=== PATIENT | female | born 1985 | race Caucasian/White ===

== ENCOUNTER 2023-12-12 14:42 | Outpatient (AMB) | payer OTHER, SELFPAY ==
[2023-12-12 15:06] VITALS: BP 161/90; PULSE 70; O2SAT 97; BMI 38.9
--- NOTE | 2023-12-12 15:06 | A.OFFPC_ITS ---
Vital Signs 12/12/23 15:06 Height 5 ft 5 in Weight 234 lb BMI 38.9 BP 161/90 H Pulse 70 Pulse Source Pulse Oximeter Pulse Oximetry (%) 97 Oxygen Delivery Method Room Air Intake Visit Reasons: New patient-req physical Intake Note: Patient is here as a new patient, would like to talk about cough, congestion, for 2 days. [employer] Contemporary [employer] Curator Required: Yes [employer] Contemporary [employer] Curator Name: [id number] Clark. Allergies No Known Allergies Allergy (Verified 12/12/23 15:10) Tobacco use date assessed: 12/12/23 Dental Screening Dental Screen Date: 12/12/23 Did you have a dental visit in the last 12 months?: No Did you have a dental problem in the last 6 months where you did not have access to dental care?: No Was dental information given to patient?: Patient declined HPI New patient-req physical HPI Details New patient Prior PCP:? PCP in [place] Last office visit/CPE: 8 yrs ago Acute issue(s): Cough High BP PMHx: High BP readings, High BS readings, Anemia. SurgHx: FHx: Mom: HTN, HLD. Dad: HTN, Bladder CA SocHx: Nonsmoker, EtOH Socially. No drugs. PFS Medical History (Updated 12/12/23 @ 15:46 by Cas Hughes) Acid reflux Hemoglobin low delivery delivered Family History (Updated 12/12/23 @ 15:33 by Jaylin Horton [facility]) Mother High blood pressure High cholesterol Father High blood pressure High cholesterol Cardiovascular disease Cancer Maternal Grandmother High blood pressure Paternal Grandfather High blood pressure Social History (Updated 12/12/23 @ 15:23 by Jaylin Horton [facility]) Household Members: Family Housing: House Are you a primary career and technology education teacher to a significant other at home: No Do you presently have visiting nurse or other home services: No 75 years or older and lives alone: No Alcohol intake: current Alcohol intake frequency: holidays/special occasions only Alcohol type: wine Patient Tobacco Use Status: Never used Tobacco e-Cigarette/Vaping Use: Never Used Special frances needs: Yes service: No Current occupational status: employed Current occupation: Works at [employer] Cognitive needs: No Hearing needs: No Vision needs: No Questionnaire PHQ-9 Over the last 2 weeks, how often have you been bothered by any of the following problems? 1. Little interest or pleasure in doing things: not at all 2. Feeling down, depressed, or hopeless: not at all 3. Trouble falling or staying asleep, or sleeping too much: not at all 4. Feeling tired or having little energy: more than half the days 5. Poor appetite or overeating: several days 6. Feeling bad about yourself - or that you are a failure or have let yourself or your family down: not at all 7. Trouble concentrating on things, such as reading the newspaper or watching television: not at all 8. Moving or speaking so slowly that other people could have noticed. Or the opposite - being so fidgety or restless that you have been moving around a lot more than usual: not at all 9. Thoughts that you would be better off or of hurting yourself in some way: not at all Total score: 3 Source: Developed by Drs. Nikhil uKmar, Nichole Azul, Talha Lindquist and colleagues, with an educational trice from [employer]. Thrive Questionnaire Date Thrive assessed: 12/12/23 I am a: Patient What is your living situation today?: I have a steady place to live Within the past 12 months, did the food you bought not last and you didn't have the money to get more?: Never true Do you have trouble paying for medicines?: No Do you have trouble getting transportation to medical appointments?: No Do you have trouble paying your heating and electricity bill?: No Do you have trouble taking care of your child, family member or friend?: No Do you have trouble with day-to-day activities such as bathing, preparing meals, shopping, managing finances, etc.?: No Are you currently unemployed and looking for a job?: No Are you interested in more education?: No THRIVE Score: 0 LAYLA-7 AMB Questionnaire LAYLA-7 Date LAYLA - 7 assessed: 12/12/23 Feeling nervous, anxious, or on edge: 0 = Not at all Not being able to stop or control worryin = Not at all Worrying too much about different things: 1 = Several days Trouble relaxin = Not at all Being so restless that it is hard to sit still: 0 = Not at all Becoming easily annoyed or irritable: 1 = Several days Feeling afraid as if something awful might happen: 0 = Not at all Total LAYLA-7 score (0-4 normal; 5-9 mild; 10-14 moderate; 15-21 severe): 2 Source: Developed by Drs. Nikhil Kumar, Nichole Azul, Talha Lindquist and colleagues, with an educational trice from [employer]. Review of Systems Const Denies chills, Denies fatigue, Denies fever(s), Denies headache(s) and Denies weakness ENT Denies dizziness and Denies headache(s) Card Denies chest pain, Denies lightheadedness, Denies dyspnea and Denies other (Palpitations) Resp Denies cough, Denies dyspnea, Denies wheezing and Denies other ( shortness of breath) Musc Denies numbness and Denies tingling Neuro Denies dizziness, Denies headache(s), Denies numbness, Denies tingling, Denies paresthesias and Denies weakness Psych Denies anxiety and Denies depression Endo Denies fatigue Aller/Immun Denies wheezing Physical exam (Primary Care) BMI result Body Mass Index 38.9 Tobacco/Smoking Status: Tobacco use Status Tobacco use date assessed 12/12/23 12/12/23 15:23 Patient Tobacco Use Status Never used Tobacco 12/12/23 15:23 e-Cigarette/Vaping Use Never Used 12/12/23 15:23 Const General: no acute distress and well developed Nutritional Appearance: well nourished Orientation/consciousness: patient [facility]: Yes normocephalic and Yes atraumatic Eyes General: appearance normal, both eyes and all related structures Pupils: Equal, round and reactive pupils present EOM: EOMs intact bilaterally Resp Effort & Inspection: normal respiratory effort Auscultation: clear to auscultation bilaterally Cardio Rate: regular rate Rhythm: regular rhythm Heart sounds: S1 normal heart sound present, S2 normal heart sound present, no gallops, no murmurs and no rubs Neuro General: patient oriented x3 and gait normal Cranial nerves: Yes Equal, round and reactive pupils present Psych Affect: normal affect Assessment and Plan Assessment & Plan (1) Hypertension: Code(s): I10 - Essential (primary) hypertension Plan: Start?lisinopril. Goal?is?less?than?140/90 (2) High blood sugar: Code(s): R73.9 - Hyperglycemia, unspecified Plan: Patient?has?had?blood?sugar?reading?over?400 She?has?not?been?told?that?she?has?diabetes. She?has?been?taking?metformin. Unable?to?obtain?A1c?due?to?low?hemoglobin. Will?check?fructosamine Continue?metformin (3) Low hemoglobin: Code(s): D64.9 - Anemia, unspecified Plan: Check?H&H (4) Laboratory exam ordered as part of routine general medical examination: Code(s): Z00.00 - Encounter for general adult medical examination without abnormal findings Plan: Check labs Orders: Orders Comprehensive [place]. Panel Fast Today Z00.00 - Encounter for general adult medical examination without abnormal findings Complete Blood Count Auto Diff Today Z00.00 - Encounter for general adult medical examination without abnormal findings Lipid Panel Today Z00.00 - Encounter for general adult medical examination without abnormal findings UA and rflx microscopic Today Z00.00 - Encounter for general adult medical examination without abnormal findings Fructosamine Today D64.9 - Anemia, unspecified, R73.9 - Hyperglycemia, unspecified Microalbumin, Random (w Creat) Today I10 - Essential (primary) hypertension TSH reflex Free T4 Today Z00.00 - Encounter for general adult medical examination without abnormal findings Hemoglobin A1c Today R73.01 - Impaired fasting glucose Medications: New metformin 500 mg PO DAILY 30 days 30 tabs 2RF lisinopril 20 mg PO DAILY 30 days 30 tabs 2RF Coding Level of Care Code New Pt Level 3 (70147) Diagnoses Hypertension I10 High blood sugar R73.9 Low hemoglobin D64.9 Laboratory exam ordered as part of routine general medical examination Z00.00
== END 2023-12-12 16:00 | disposition home or self-care (01) ==
PROVIDERS: PCP Family Medicine; Visit Provider Family Medicine
DX: I10 Essential (primary) hypertension (principal); R73.9 Hyperglycemia, unspecified; D64.9 Anemia, unspecified; Z00.00 Encounter for general adult medical examination without abnormal findings
CPT/HCPCS: 99203

== ENCOUNTER 2024-01-19 06:08 | Outpatient (REF) | payer OTHER, SELFPAY ==
[2024-01-19 11:34] LABS: MANUAL DIFF FLAG NO
[2024-01-19 11:41] LABS: Basophils Absolute Auto 0.1 X10*3/uL (0.0-0.2); Basophils Percent Auto 0.9 % (0-2); Eosinophils Absolute Auto 0.2 X10*3/uL (0.0-0.4); Hematocrit 37.3 % (37.0-47.0); Hemoglobin 11.7 g/dl (12.0-16.0); Imm Gran Abs Auto 0.01 X10*3/uL (0.00-0.03); Imm Gran Pct Auto 0.2 % (0.0-0.4); Lymphocytes Percent Auto 35.8 % (20-40); Mean Corpuscular HGB Conc 31.4 g/dl (31.0-35.0); Mean Corpuscular Hemoglobin 24.6 pg (27.0-33.0); Mean Corpuscular Volume 78.5 fL (80.0-98.0); Mean Platelet Volume 11.3 fL (9.4-12.3); Monocytes Absolute Auto 0.4 X10*3/uL (0.1-1.2); Monocytes Percent Auto 7.2 % (2-11); Neutrophils Percent Auto 52.9 % (45-73); Platelet Count 287 X10*3/uL (160-400); Red Blood Count 4.75 X10*6/uL (4.20-5.50); Red Cell Distribution Width 15.1 % (11.0-16.0); White Blood Count 5.7 X10*3/uL (4.8-10.8)
[2024-01-19 11:52] LABS: Estimated Average Glucose 103 mg/dL; Hemoglobin A1c % 5.2 % (<6.0)
[2024-01-19 12:12] LABS: Alanine Aminotransferase 36 U/L (0-31); Albumin Level 4.1 g/dL (3.5-5.0); Alkaline Phosphatase 82 U/L (39-117); Anion Gap 7 (12-20); Aspartate Amino Transferase 27 U/L (5-31); Bilirubin Total 0.3 mg/dL (0.0-1.0); Blood Urea Nitrogen 24 mg/dL (9-16); Calcium 9.3 mg/dL (8.4-10.2); Carbon Dioxide 27 mmol/L (22-29); Chloride 108 mmol/L (96-108); Cholesterol 173 mg/dL (<200); Estimated Glomerular Filt Rate > 60; Glucose Fasting 91 mg/dL (60-99); HDL Cholesterol 43 mg/dL (>40); LDL Cholesterol Calculated 116 mg/dL (<100); Potassium 4.3 mmol/L (3.3-5.1); Sodium 138 mmol/L (135-145); Total Protein 7.4 g/dL (6.5-8.0); Triglycerides 71 mg/dL (<150)
[2024-01-19 12:33] LABS: TSH reflex Free T4 1.59 uIU/mL (0.32-4.0)
[2024-01-24 22:38] LABS: Fructosamine 203 umol/L (205-285)
== END 2024-01-19 06:09 | disposition home or self-care (01) ==
LOC: HO.HMGCLDS 06:08
PROVIDERS: PCP Family Medicine; Visit Provider Family Medicine
DX: Z00.00 Encounter for general adult medical examination without abnormal findings (principal); R73.9 Hyperglycemia, unspecified; D64.9 Anemia, unspecified
CPT/HCPCS: 36415; 80053; 80061; 82985; 83036; 84443; 85025

== ENCOUNTER 2024-01-24 15:53 | Outpatient (AMB) | payer OTHER, SELFPAY ==
--- NOTE | 2024-01-24 15:59 | MHC.PC.OV ---
Vital Signs 01/24/24 16:00 Height 5 ft 5 in Weight 238 lb BMI 39.6 BP 129/61 Blood Pressure Location Rt brachial Pulse 61 Pulse Source Pulse Oximeter Pulse Oximetry (%) 97 Oxygen Delivery Method Room Air Intake Visit Reasons: f/u labs, hemoglobin, hypertension Intake Note: Patient is here for lab follow up. Allergies No Known Allergies Allergy (Verified 01/24/24 16:02) Tobacco use date assessed: 01/24/24 HPI f/u labs, hemoglobin, hypertension HPI Details 38 y/o female presents to f/u labs, hypertension. Labs were drawn 01/19/24. Reviewed labs with pt. Hgb mildly low at 11.7. Elevated ALT of 36. Triglycerides 71. TC 173. LDL 116. HDL 43. A1c 5.2%. Blood pressure today is 129/61. She is on lisinopril 20mg daily. [facility] Medical History (Updated 01/24/24 @ 16:48 by Cas Hughes) Acid reflux Hemoglobin low delivery delivered Family History (Updated 12/12/23 @ 15:37 by Jaylin Horton [facility]) Mother High blood pressure High cholesterol Father High blood pressure High cholesterol Cardiovascular disease Cancer Maternal Grandmother High blood pressure Paternal Grandfather High blood pressure Social History (Updated 12/12/23 @ 15:23 by Jaylin Horton [facility]) Household Members: Family Housing: House Are you a primary complex care nurse practitioner to a significant other at home: No Do you presently have visiting nurse or other home services: No 75 years or older and lives alone: No Alcohol intake: current Alcohol intake frequency: holidays/special occasions only Alcohol type: wine Patient Tobacco Use Status: Never used Tobacco e-Cigarette/Vaping Use: Never Used Special frances needs: Yes service: No Current occupational status: employed Current occupation: Works at [employer] Cognitive needs: No Hearing needs: No Vision needs: No Questionnaire Thrive Questionnaire Date Thrive assessed: 12/12/23 LAYLA-7 AMB Questionnaire LAYLA-7 Date LAYLA - 7 assessed: 12/12/23 Source: Developed by Drs. Nikhil Kumar, Nichole Azul, Talha Lindquist and colleagues, with an educational trice from [employer]. Review of Systems Const Denies chills, Denies fatigue, Denies fever(s), Denies headache(s) and Denies weakness ENT Denies dizziness and Denies headache(s) Card Denies dyspnea Resp Denies cough, Denies dyspnea, Denies wheezing and Denies other (shortness of breath) Musc Denies numbness and Denies tingling Neuro Denies dizziness, Denies headache(s), Denies numbness, Denies tingling and Denies weakness Psych Denies anxiety and Denies depression Endo Denies fatigue Aller/Immun Denies wheezing Physical exam (Primary Care) Vital Signs: Last Vital Signs Pulse 61 01/24/24 16:00 BP 129/61 01/24/24 16:00 Pulse Ox 97 01/24/24 16:00 Oxygen Delivery Method Room Air 01/24/24 16:00 BMI result Body Mass Index 39.6 Tobacco/Smoking Status: Tobacco use Status Tobacco use date assessed 01/24/24 01/24/24 16:03 Patient Tobacco Use Status Never used Tobacco 01/24/24 16:03 e-Cigarette/Vaping Use Never Used 01/24/24 16:03 Thrive Assessment: Date of Thrive Assessment Date Thrive assessed 12/12/23 01/24/24 16:03 Const General: well developed; No acute distress Nutritional Appearance: well nourished Orientation/consciousness: patient oriented x3 HENMT Head: Yes normocephalic and Yes atraumatic Eyes General: appearance normal, both eyes and all related structures Pupils: Equal, round and reactive pupils present EOM: EOMs intact bilaterally Resp Effort & Inspection: normal respiratory effort Skin Other: 1/2 cm wart on the pad of L index finger Neuro General: patient oriented x3 and gait normal Cranial nerves: Yes Equal, round and reactive pupils present Psych Affect: normal affect Assessment and Plan Assessment & Plan (1) Hypertension: Code(s): I10 - Essential (primary) hypertension Plan: BP now controlled on Lisinopril Goal < 140/90 Cont current med regimen (2) High blood sugar: Code(s): R73.9 - Hyperglycemia, unspecified Plan: Pt on Metformin. A1c 5.2%. No definitive diagnosis of DM Cont metformin as prescribed (3) Borderline anemia: Code(s): D64.9 - Anemia, unspecified Plan: Mildly decreased Hemoglobin. HCT in normal range. Also mild microcytosis. May benefit from Iron Will continue to monitor (4) Elevated ALT measurement: Code(s): R74.01 - Elevation of levels of liver transaminase levels Plan: Likely?nonalcoholic?hepatic?steatosis?but?also?encouraged?she?avoid?Tylenol?and?alcohol. Hydrate?well We?will?repeat?her?liver?enzymes?prior?to?her?next?visit?in?3?months If?liver?enzymes?are?the?same?or?higher,?would?check?an?ultrasound (5) Wart: Code(s): B07.9 - Viral wart, unspecified Plan: Wart?on?the?pad?of?her?left?index?finger. Recommended?she?try?a?salicylic?acid?pad?or?drops. If?not?improving,?will?refer?to?dermatology?due?to?the?location. Orders: Orders Vitamin B12 and Folate Today E53.8 - Deficiency of other specified B group vitamins IRON PROFILE Today D64.9 - Anemia, unspecified Comprehensive [place]. Panel Fast Today R74.01 - Elevation of levels of liver transaminase levels, Z00.00 - Encounter for general adult medical examination without abnormal findings Lipid Panel Today Z00.00 - Encounter for general adult medical examination without abnormal findings Complete Blood Count Auto Diff Today D64.9 - Anemia, unspecified, Z00.00 - Encounter for general adult medical examination without abnormal findings Coding Level of Care Code Est Pt Level 4 (30091) Diagnoses Hypertension I10 High blood sugar R73.9 Borderline anemia D64.9 Elevated ALT measurement R74.01 Wart B07.9
[2024-01-24 16:00] VITALS: BP 129/61; PULSE 61; O2SAT 97; BMI 39.6
== END 2024-01-24 17:54 | disposition home or self-care (01) ==
PROVIDERS: PCP Family Medicine; Visit Provider Family Medicine
DX: I10 Essential (primary) hypertension (principal); R73.9 Hyperglycemia, unspecified; D64.9 Anemia, unspecified; R74.01 Elevation of levels of liver transaminase levels; B07.9 Viral wart, unspecified
CPT/HCPCS: 99214

== ENCOUNTER 2024-09-06 13:01 | Outpatient (AMB) | payer OTHER, SELFPAY ==
--- NOTE | 2024-09-06 13:33 | A.OFFPC_ITS ---
Vital Signs 09/06/24 13:34 Height 5 ft 5 in Weight 236 lb 4 oz BMI 39.3 BP 136/64 Blood Pressure Location Rt brachial Position Sitting Respiration 16 Pulse 76 Pulse Source Pulse Oximeter Temp 98.2 F Temp Source Temporal Artery Scan Pulse Oximetry (%) 98 Oxygen Delivery Method Room Air Intake Visit Reasons: Shoulder Pain Intake Note: left shoulder pain 4 days Allergies No Known Allergies Allergy (Verified 09/06/24 13:34) Medication List - Last Reconciled 09/06/24 by Brooks Wolf MD losartan 50 mg PO DAILY 90 days metformin 500 mg PO DAILY 30 days naproxen 500 mg PO BID 30 days Tobacco use date assessed: 01/24/24 Dental Screening Dental Screen Date: 12/12/23 HPI Shoulder Pain HPI Details 38 y/o female presents today with compla ints of L shoulder pain. Reports pain x4 days. Her job has her sometimes lifting heavy things. A1c 01/19/24 was 5.2%. A1c today 09/06/24 5.7%. She is on metformin 500mg daily. No definitive diagnosis of DM. Blood pressure today 136/64, 76p. She is on losartan 50mg daily. [facility] Medical History (Updated 09/06/24 @ 14:16 by Brooks Wolf MD) Acid reflux Hemoglobin low delivery delivered Family History (Updated 12/12/23 @ 15:37 by Jaylin Horton CMA) Mother High blood pressure High cholesterol Father High blood pressure High cholesterol Cardiovascular disease Cancer Maternal Grandmother High blood pressure Paternal Grandfather High blood pressure Social History (Updated 12/12/23 @ 15:23 by Jaylin Horton CMA) Household Members: Family Housing: House Are you a primary skin care instructor to a significant other at home: No Do you presently have visiting nurse or other home services: No 75 years or older and lives alone: No Alcohol intake: current Alcohol intake frequency: holidays/special occasions only Alcohol type: wine Patient Tobacco Use Status: Never used Tobacco e-Cigarette/Vaping Use: Never Used Special frances needs: Yes service: No Current occupational status: employed Current occupation: Works at [email or web address] Cognitive needs: No Hearing needs: No Vision needs: No Questionnaire PHQ-9 Over the last 2 weeks, how often have you been bothered by any of the following problems? 1. Little interest or pleasure in doing things: not at all 2. Feeling down, depressed, or hopeless: not at all 3. Trouble falling or staying asleep, or sleeping too much: not at all 4. Feeling tired or having little energy: not at all 5. Poor appetite or overeating: not at all 6. Feeling bad about yourself - or that you are a failure or have let yourself or your family down: not at all 7. Trouble concentrating on things, such as reading the newspaper or watching television: not at all 8. Moving or speaking so slowly that other people could have noticed. Or the opposite - being so fidgety or restless that you have been moving around a lot more than usual: not at all 9. Thoughts that you would be better off or of hurting yourself in some way: not at all Total score: 0 Source: Developed by Drs. Nikhil Kumar, Nichole Azul, Talha Lindquist and colleagues, with an educational trice from [employer]. Thrive Questionnaire Date Thrive assessed: 12/12/23 I am a: Patient What is your living situation today?: I have a steady place to live Within the past 12 months, did the food you bought not last and you didn't have the money to get more?: Often true Within the past 12 months, did you worry whether your food would run out before you got money to buy more?: Often true Do you have trouble paying for medicines?: I choose not to answer this question Do you have trouble getting transportation to medical appointments?: No Do you have trouble paying your heating and electricity bill?: I choose not to answer this question Do you have trouble taking care of your child, family member or friend?: I choose not to answer this question Do you have trouble with day-to-day activities such as bathing, preparing meals, shopping, managing finances, etc.?: No Are you currently unemployed and looking for a job?: No Are you interested in more education?: I choose not to answer this question Please select the resources that you would like help with: None Currently or been in a relationship where the following occur: I choose not to answer THRIVE Score: 2 AUDIT C Alcohol Use Questionnaire (AUDIT-C) 1. How often do you have a drink containing alcohol?: Never Total Score: 0 LAYLA-7 AMB Questionnaire LAYLA-7 Date LAYLA - 7 assessed: 12/12/23 Feeling nervous, anxious, or on edge: 0 = Not at all Not being able to stop or control worryin = Not at all Worrying too much about different things: 0 = Not at all Trouble relaxin = Not at all Being so restless that it is hard to sit still: 0 = Not at all Becoming easily annoyed or irritable: 0 = Not at all Feeling afraid as if something awful might happen: 0 = Not at all Total LAYLA-7 score (0-4 normal; 5-9 mild; 10-14 moderate; 15-21 severe): 0 Source: Developed by Drs. Nikhil Kumar, Nichole Azul, Talha Lindquist and colleagues, with an educational trice from [employer]. Review of Systems Const Denies chills, Denies fatigue, Denies fever(s), Denies headache(s) and Denies weakness ENT Denies dizziness and Denies headache(s) Card Denies dyspnea Resp Denies cough, Denies dyspnea, Denies wheezing and Denies other (shortness of breath) Musc Details: L shoulder pain Denies numbness and Denies tingling Neuro Denies dizziness, Denies headache(s), Denies numbness, Denies tingling and Denies weakness Psych Denies anxiety and Denies depression Endo Denies fatigue Aller/Immun Denies wheezing Physical exam (Primary Care) Vital Signs: Last Vital Signs Temp 98.2 F 09/06/24 13:34 Pulse 76 09/06/24 13:34 Resp 16 09/06/24 13:34 BP 136/64 09/06/24 13:34 Pulse Ox 98 09/06/24 13:34 Oxygen Delivery Method Room Air 09/06/24 13:34 BMI result Body Mass Index 39.3 Tobacco/Smoking Status: Tobacco use Status Tobacco use date assessed 01/24/24 09/06/24 13:38 Patient Tobacco Use Status Never used Tobacco 09/06/24 13:38 e-Cigarette/Vaping Use Never Used 09/06/24 13:38 PHQ-9: PHQ-9 Score PHQ-9: Total score 0 09/06/24 21:38 Thrive Assessment: Date of Thrive Assessment Date Thrive assessed 12/12/23 09/06/24 13:38 Currently or been in a relationship where the following occur: I choose not to answer Const General: well developed; No acute distress Nutritional Appearance: well nourished Orientation/consciousness: patient oriented x3 HENMT Head: Yes normocephalic and Yes atraumatic Eyes General: appearance normal, both eyes and all related structures Pupils: Equal, round and reactive pupils present EOM: EOMs intact bilaterally Resp Effort & Inspection: normal respiratory effort Neuro General: patient oriented x3 and gait normal Cranial nerves: Yes Equal, round and reactive pupils present Psych Affect: normal affect Results AMB Hemoglobin A1c AMB Hemoglobin A1c 5.7 % Last Edit by JEFERSON Lunsford on 09/06/24 16:13 Results Reviewed Results Reviewed: Laboratory Last Values Hgb A1c (Clinic) 5.7 % (4.0-6.0) 09/06/24 16:12 Coding Level of Care Code Est Pt Level 4 (11699) Diagnoses Left shoulder pain M25.512 Hypertension I10 High blood sugar R73.9 Assessment & Plan Assessment & Plan (1) Left shoulder pain: Code(s): M25.512 - Pain in left shoulder Category: Medical Plan: Bilateral?trapezius?muscle?strain,?left?worse?than?right Encouraged?ice/heat,?NSAIDs?and?physical?therapy She?can?let?me?know?if?this?worsens?or?is?not?improving (2) Hypertension: Code(s): I10 - Essential (primary) hypertension Plan: Blood?pressure?is?controlled.??Goal?is?less?than?140/90 Continue?current?medication (3) High blood sugar: Code(s): R73.9 - Hyperglycemia, unspecified Plan: A1c?shows?good?control.??Goal?is?less?than?7.0% Continue?current?medication Continue?working?at?a?diet?low?in?sugars?and?starches Encouraged?exercise?and?weight?loss Orders: Orders PT Evaluation and Treatment Today M25.512 - Pain in left shoulder, S46.819A - Strain of other muscles, fascia and tendons at shoulder and upper arm level, unspecified arm, initial encounter AMB Hemoglobin A1c Today R73.9 - Hyperglycemia, unspecified Medications: New naproxen 500 mg PO BID 30 days 60 tabs 1RF Refilled losartan 50 mg PO DAILY 90 days 90 tabs 3RF metformin 500 mg PO DAILY 30 days 30 tabs 2RF
[2024-09-06 13:34] VITALS: BP 136/64; PULSE 76; RESP 16; TEMP 36.8; O2SAT 98; BMI 39.3
== END 2024-09-06 14:15 | disposition home or self-care (01) ==
PROVIDERS: PCP Family Medicine; Visit Provider Family Medicine
DX: M25.512 Pain in left shoulder (principal); I10 Essential (primary) hypertension; R73.9 Hyperglycemia, unspecified

== ENCOUNTER → 2024-09-06 13:01 | Outpatient (BNVA) | payer OTHER, SELFPAY | PROVIDERS: PCP Family Medicine; Visit Provider Family Medicine | DX: M25.512 Pain in left shoulder (principal); R73.9 Hyperglycemia, unspecified; I10 Essential (primary) hypertension | CPT/HCPCS: 83036; 96127; 99212 ==

== ENCOUNTER 2024-11-19 13:01 | Outpatient (RCR) | payer OTHER, SELFPAY ==
--- NOTE | 2024-10-22 16:28 | MHC.PT.EP ---
[facility] [place] Office [place] Office [place] Office [address] Carmen Marcus [address] [phone] F: [phone] F: [phone] F: [phone] F: [phone] Physical Therapy Plan of Care Date of Evaluation: 10/22/24 Date of Surgery: Diagnosis: L shoulder pain *Trapezius muscle strain (MD Dx) L shoulder subacromial impingement syndrome (PT Dx) Assessment: Katya is a 39 yo Polish speaking female who was referred by Dr. Brooks Wolf MD for Dx of Left shoulder pain and trapezius muscle strain. PT diagnosis is LEFT UT strain, subacromial impingement syndrome. Impairments include forward shoulder posture, painful shoulder ROM, decreased and painful shoulder strength, and poor lifting mechanics resulting in their inability to lift, reach, and turn head. 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 Pt will benefit from skilled PT to address impairments and meet their goals. Frequency and Duration: The patient will be seen 1x/4weeks Short Term Goals: 2 weeks Patient will be able to perform HEP to independently manage condition. Patient will demonstrate proper lifting mechanics to lift 5 lbs without pain. 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 Patient will increase shoulder abduction strength to 5/5 without pain to be able to lift 15 lb at work. Treatment Plan: Modalities to reduce pain, spasms and effusion. Manual therapy to restore motion and function. Therapeutic exercise to improve strength and flexibility. Neuromuscular re-education for posture and balance. Therapeutic activities to return to functional activities of daily living. Electronically signed by: Xiomara Woodall, PT, DPT Please sign and return to therapist. Thank you for your referral.
--- NOTE | 2024-11-19 15:17 | MHC.PT.DC ---
[facility] [place] Office [place] [facility] [place] [facility] [address] Carmen Marcus [address] [phone] F: [phone] F: [phone] F: [phone] F: [phone] Physical Therapy Discharge Report Diagnosis: L shoulder pain *Trapezius muscle strain (MD Dx) L shoulder subacromial impingement syndrome (PT Dx) Date of Surgery: Date of Evaluation: 10/22/24 Date of Discharge: 11/19/24 Treatments to Date: 5 Cancellations to Date: No Shows to Date: Discharge Status: Improved Function Independent with HEP Discharge Summary: Katya presents with full AROM and near full strength. 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 She is re-educated today on the importance of neutral posture with reduction of shoulder and neck pain. She is appropriate for discharge. Electronically signed by: Xiomara Woodall, PT, DPT Please sign and return to therapist. Thank you for your referral.
== END 2024-11-19 15:18 | disposition home or self-care (01) ==
LOC: HO.PT 13:01
PROVIDERS: PCP Family Medicine; Visit Provider Family Medicine
DX: M25.512 Pain in left shoulder (principal); S46.812A Strain of other muscles, fascia and tendons at shoulder and upper arm level, left arm, initial encounter
CPT/HCPCS: 97110; 97140; 97161; 97535

== ENCOUNTER 2024-11-26 11:14 | Outpatient (AMB) | payer OTHER, SELFPAY ==
--- NOTE | 2024-11-26 11:21 | A.OFFPC_ITS ---
Vital Signs 11/26/24 11:54 Height 5 ft 5 in Weight 230 lb 2 oz BMI 38.3 BP 137/76 Blood Pressure Location Rt brachial Position Sitting Respiration 16 Pulse 64 Pulse Source Pulse Oximeter Temp 98.7 F Temp Source Oral Pulse Oximetry (%) 98 Oxygen Delivery Method Room Air Intake Visit Reasons: f/u hypertension, blood sugars Intake Note: patient here to follow up on HTN and Blood sugars Natural Resources Faculty Member Required: Yes Natural Resources Faculty Member Language: Off Track Betting Manager Name: [id number] Is last menstrual period known: Yes Last menstrual period: 11/19/24 Post menopausal: No Patient : No Allergies No Known Allergies Allergy (Verified 11/26/24 11:53) Medication List - Last Reconciled 11/26/24 by Brooks Wolf MD losartan 50 mg PO DAILY 90 days metformin 500 mg PO DAILY naproxen 500 mg PO BID 30 days Tobacco use date assessed: 11/26/24 Dental Screening Dental Screen Date: 11/26/24 Did you have a dental visit in the last 12 months?: No Did you have a dental problem in the last 6 months where you did not have access to dental care?: No Was dental information given to patient?: Patient has dentist HPI f/u hypertension, blood sugars HPI Details 39 y/o female presents to f/u blood suga rs, htn. Last A1c 09/06/24 5.7%. She is on metformin 500mg daily. No definitive diagnosis of DM. Blood pressure today 137/76, 64p. She is on losartan 50mg daily. HPI Comments History of Present Illness Details Documentation assistance for Brooks Wolf MD, was provided by Cas Hughes, Electronics Installer on 11/26/2024 at 12:21 PM EST. I, Dr. Wolf, have read, observed, and verified documentation. [facility] Medical History (Updated 11/26/24 @ 12:27 by Brooks Wolf MD) Acid reflux Hemoglobin low delivery delivered Family History (Updated 12/12/23 @ 15:37 by Jaylin Horton CMA) Mother High blood pressure High cholesterol Father High blood pressure High cholesterol Cardiovascular disease Cancer Maternal Grandmother High blood pressure Paternal Grandfather High blood pressure Social History (Updated 12/12/23 @ 15:23 by Jaylin Horton CMA) Household Members: Family Housing: House Are you a primary overnight caregiver to a significant other at home: No Do you presently have visiting nurse or other home services: No 75 years or older and lives alone: No Alcohol intake: current Alcohol intake frequency: holidays/special occasions only Alcohol type: wine Patient Tobacco Use Status: Never used Tobacco e-Cigarette/Vaping Use: Never Used Special frances needs: Yes service: No Current occupational status: employed Current occupation: Works at [employer] Cognitive needs: No Hearing needs: No Vision needs: No Female Reproductive History Menstrual Date of last menstrual period: 11/19/24 Questionnaire PHQ-9 Over the last 2 weeks, how often have you been bothered by any of the following problems? 1. Little interest or pleasure in doing things: not at all 2. Feeling down, depressed, or hopeless: not at all 3. Trouble falling or staying asleep, or sleeping too much: not at all 4. Feeling tired or having little energy: not at all 5. Poor appetite or overeating: not at all 6. Feeling bad about yourself - or that you are a failure or have let yourself or your family down: not at all 7. Trouble concentrating on things, such as reading the newspaper or watching television: not at all 8. Moving or speaking so slowly that other people could have noticed. Or the opposite - being so fidgety or restless that you have been moving around a lot more than usual: not at all 9. Thoughts that you would be better off or of hurting yourself in some way: not at all Total score: 0 Depression Screening Interpretation: Negative Depression Screening Done: Yes 61042 - PHQ-9 Billing: Yes Source: Developed by Drs. Nikhil Kuamr, Nichole Azul, Talha Lindquist and colleagues, with an educational trice from [employer]. Thrive Questionnaire Date Thrive assessed: 11/26/24 I am a: Patient What is your living situation today?: I have a steady place to live Within the past 12 months, did the food you bought not last and you didn't have the money to get more?: I choose not to answer this question Within the past 12 months, did you worry whether your food would run out before you got money to buy more?: I choose not to answer this question Do you have trouble paying for medicines?: I choose not to answer this question Do you have trouble getting transportation to medical appointments?: Yes Do you have trouble paying your heating and electricity bill?: I choose not to answer this question Do you have trouble taking care of your child, family member or friend?: No Do you have trouble with day-to-day activities such as bathing, preparing meals, shopping, managing finances, etc.?: No Are you currently unemployed and looking for a job?: No Are you interested in more education?: No Please select the resources that you would like help with: None Currently or been in a relationship where the following occur: No concerns reported THRIVE Score: 1 AUDIT C Alcohol Use Questionnaire (AUDIT-C) 1. How often do you have a drink containing alcohol?: Never 3. How often do you have six or more drinks on one occasion?: Never Total Score: 0 LAYLA-7 AMB Questionnaire LAYLA-7 Date LAYLA - 7 assessed: 11/26/24 Feeling nervous, anxious, or on edge: 0 = Not at all Not being able to stop or control worryin = Not at all Worrying too much about different things: 0 = Not at all Trouble relaxin = Not at all Being so restless that it is hard to sit still: 0 = Not at all Becoming easily annoyed or irritable: 0 = Not at all Feeling afraid as if something awful might happen: 0 = Not at all Total LAYLA-7 score (0-4 normal; 5-9 mild; 10-14 moderate; 15-21 severe): 0 Source: Developed by Drs. Nikhil Kumar, Nichole Azul, Talha Lindquist and colleagues, with an educational trice from [employer]. LAYLA-7 Assessment Billing LAYLA-7 Assessment Tool: LAYLA-7 Assessment 04664 Review of Systems Const Denies chills, Denies fatigue, Denies fever(s), Denies headache(s) and Denies weakness ENT Denies dizziness and Denies headache(s) Card Denies dyspnea Resp Denies cough, Denies dyspnea, Denies wheezing and Denies other (shortness of breath) Musc Denies numbness and Denies tingling Neuro Denies dizziness, Denies headache(s), Denies numbness, Denies tingling and Denies weakness Psych Denies anxiety and Denies depression Endo Denies fatigue Aller/Immun Denies wheezing Physical exam (Primary Care) Vital Signs: Last Vital Signs Temp 98.7 F 11/26/24 11:54 Pulse 64 11/26/24 11:54 Resp 16 11/26/24 11:54 BP 137/76 11/26/24 11:54 Pulse Ox 98 11/26/24 11:54 Oxygen Delivery Method Room Air 11/26/24 11:54 BMI result Body Mass Index 38.3 Tobacco/Smoking Status: Tobacco use Status Tobacco use date assessed 11/26/24 11/26/24 11:57 Patient Tobacco Use Status Never used Tobacco 11/26/24 11:23 e-Cigarette/Vaping Use Never Used 11/26/24 11:23 PHQ-9: PHQ-9 Score PHQ-9: Total score 0 11/26/24 12:21 Depression Screening Interpretation: Negative Thrive Assessment: Date of Thrive Assessment Date Thrive assessed 11/26/24 11/26/24 11:23 Currently or been in a relationship where the following occur: No concerns reported Const General: well developed; No acute distress Nutritional Appearance: well nourished Orientation/consciousness: patient oriented x3 HENMT Head: Yes normocephalic and Yes atraumatic Eyes General: appearance normal, both eyes and all related structures Pupils: Equal, round and reactive pupils present EOM: EOMs intact bilaterally Resp Effort & Inspection: normal respiratory effort Neuro General: patient oriented x3 and gait normal Cranial nerves: Yes Equal, round and reactive pupils present Psych Affect: normal affect Coding Level of Care Code Est Pt Level 3 (93069) Diagnoses Hypertension I10 High blood sugar R73.9 Additional Codes LAYLA-7 Assessment Billing - LAYLA-7 Assessment Tool: LAYLA-7 Assessment 23886 ([id number]) PHQ-9 - 08718 - PHQ-9 Billing: Yes ([id number]) Assessment & Plan Assessment & Plan (1) Hypertension: Code(s): I10 - Essential (primary) hypertension Plan: Blood?pressure?is?controlled.??Goal?is?less?than?140/90 Continue?current?medication (2) High blood sugar: Code(s): R73.9 - Hyperglycemia, unspecified Plan: Patient?is?on?metformin.??A1c?is?5.7%.??Goal?is?less?than?7% Continue?metformin Will?refer?to?nurse?navigator?for?nutrition?teaching?as?requested Will?refer?to?ophthalmology Orders: Referrals Ophthalmology Referral E11.9 - Type 2 diabetes mellitus without complications Nurse Navigator Referral E11.9 - Type 2 diabetes mellitus without complications Medications: Changed From metformin 500 mg PO DAILY 90 tabs 0RF To metformin 500 mg PO DAILY 90 days 90 tabs 3RF Refilled losartan 50 mg PO DAILY 90 days 90 tabs 3RF
[2024-11-26 11:54] VITALS: BP 137/76; PULSE 64; RESP 16; TEMP 37.1; O2SAT 98; BMI 38.3
== END 2024-11-26 12:30 | disposition home or self-care (01) ==
PROVIDERS: PCP Family Medicine; Visit Provider Family Medicine
DX: I10 Essential (primary) hypertension (principal); R73.9 Hyperglycemia, unspecified

== ENCOUNTER → 2024-11-26 11:14 | Outpatient (BNVA) | payer OTHER, SELFPAY | PROVIDERS: PCP Family Medicine; Visit Provider Family Medicine | DX: I10 Essential (primary) hypertension (principal); R73.9 Hyperglycemia, unspecified | CPT/HCPCS: 96127; 99212 ==

== ENCOUNTER 2025-01-23 12:19 | Outpatient (AMB) | payer OTHER, SELFPAY ==
[2025-01-23 12:59] VITALS: BP 142/100; PULSE 79; TEMP 36.8; O2SAT 95
--- NOTE | 2025-01-23 12:59 | AM.OFFWIN_ITS ---
Intake Vital Signs 01/23/25 12:59 Weight 227 lb BP 142/100 H Blood Pressure Location Lt brachial Position Sitting Pulse 79 Pulse Source Pulse Oximeter Temp 98.3 F Temp Source Oral Pulse Oximetry (%) 95 Oxygen Delivery Method Room Air Intake Visit Reasons: EP severe cough, congestion Intake Note: Patient here cough and congestion that has been present for about 1 week. Patient Tobacco Use Status: Never used Tobacco Allergies No Known Allergies Allergy (Verified 01/23/25 13:11) Do you need a note to return to daycare/school/sports/work: Yes HPI HPI Comments History of Present Illness Details History - The patient is a 39-year-old female pr esenting with an acute cough and sore throat. - Symptoms have persisted for five days, with sinus pain and mild shortness of breath. - The patient denies ear pain, headaches , fevers, asthma, and smoking. - Tukol nighttime cold and flu relief has been minimally effective. - COVID-19 test results at home were neg ative. - There are no reports of illness in oth er household members. Physical Exam General: Cooperative, healthy appearing, comfortable and no acute distress Orientation/consciousness: Patient oriented x3 Limitations: No limitations Head: Normal to inspection Ears: Hearing grossly normal bilaterally, external ears normal and TM's normal bilaterally, slight fluid bilat Nose: Normal external nose present, Normal nares present and No nasal discharge present Face and sinus: Normal facial exam and Yes sinuses nontender Mouth: Normal oral and palatal mucosa present and moist mucous membranes Throat: Yes tonsils normal, Yes uvula midline. Posterior oropharynx erythema Eyes: Appearance normal, both eyes and all related structures Neck: Normal visual inspection Respiratory: Clear to auscultation bilaterally. Normal respiratory effort, able to speak in complete sentences, no respiratory distress, not tachypneic, no tripod positioning and no use of accessory muscles Cardiovascular: Regular rate and rhythm. Normal S1 and S2 Skin: No rashes or lesions noted Neuro: Patient oriented x3 Extremities: Normal to inspection and Yes no clubbing, cyanosis or edema [facility] Medical History (Updated 01/23/25 @ 13:27 by Tuyet Lock PA-C) Acid reflux Hemoglobin low delivery delivered Family History (Updated 12/12/23 @ 15:37 by Jaylin Horton [facility]) Mother High blood pressure High cholesterol Father High blood pressure High cholesterol Cardiovascular disease Cancer Maternal Grandmother High blood pressure Paternal Grandfather High blood pressure Social History (Updated 12/12/23 @ 15:23 by Jaylin Horton [facility]) Household Members: Family Housing: House Are you a primary child care centre director to a significant other at home: No Do you presently have visiting nurse or other home services: No Alcohol intake: current Alcohol intake frequency: holidays/special occasions only Alcohol type: wine Patient Tobacco Use Status: Never used Tobacco e-Cigarette/Vaping Use: Never Used Special frances needs: Yes service: No Current occupational status: employed Current occupation: Works at [employer] Cognitive needs: No Hearing needs: No Vision needs: No Review of Systems Const All systems reviewed & are unremarkable except as noted in HPI and below Physical Exam Vital Signs: Last Vital Signs Temp 98.3 F 01/23/25 12:59 Pulse 79 01/23/25 12:59 BP 142/100 H 01/23/25 12:59 Pulse Ox 95 01/23/25 12:59 Oxygen Delivery Method Room Air 01/23/25 12:59 Assessment & Plan Assessment & Plan (1) Acute viral syndrome: Code(s): B34.9 - Viral infection, unspecified Plan: VSS, pt well appearing,lungs dim and O2 95%, will get CXR. I intend to conduct a chest x-ray to assess for pneumonia given the very slightly low oxygenation leve ls observed. The current treatment with an [id number] decongestant will be continued. Diagnostic testing for influenza, COVID-19, and RSV will be performed to exclude these infections. Should the x-ray indicate pneumonia, antibiotics will be sent to her pharmacy. I will notify the patient regarding test outcomes and any treatment adjustments needed by the end of the day or tomorrow. The patient will receive a note for work following their x-ray appointment next door. Patient was informed and verbally consented to the use of an ambient scribe for clinic note documentation during this visit Orders: Orders SARS-CoV2/FLU/RSV Today R09.89 - Other specified symptoms and signs involving the circulatory and respiratory systems XR chest 2V Today R05.9 - Cough, unspecified Coding Level of Care Code Est Pt Level 4 (28715) Diagnoses Acute viral syndrome B34.9
--- OUTSIDE RECORDS SUMMARY | 2025-01-23 14:21 | XMS_ITS | Clinical Summary ---
Author Organization [facility] ity Address [address] [place] [address] Care Team Providers Care Correctional Therapy Teacher Name Role Phone Harika Friedman MD Primary Care Provider Social History Tobacco Use Types Packs/Day Years Used Date Smoking Tobacco: Never Assessed Comments Unknown Sex and Gender Information Value Date Recorded Sex Assigned at Not on file Legal Sex Female 12:37 PM EST Gender Identity Not on file Sexual Orientation Not on file Plan of Treatment Health Maintenance Due Date Last Done Comments DTaP,Tdap,and Td Vaccines (1 - Tdap) 2005 Hepatitis B Vaccines (1 of 3 - 19+ 3-dose series) 2005 Cervical Cancer Screening: P ap Smear 2007 Depression Screening 10/12/2022 HIV Screening 10/12/2022 Hepatitis C Screening 10/12/2022 Social Influencers of Health Screening 10/12/2022 COVID-19 Vaccine ( - 2023-2 5 season) 2024 Influenza Vaccine (#1) 2024 HIB Vaccines Aged Out No longer eligi ble based on patient's age to complete this topic HPV Vaccines Aged Out No longer eligi ble based on patient's age to complete this topic Hepatitis A Vaccines Aged Out No long er eligible based on patient's age to complete this topic IPV Vaccines Aged Out No longer eligi ble based on patient's age to complete this topic MMR Vaccines Aged Out No longer eligi ble based on patient's age to complete this topic Meningococcal ACWY Vaccine Aged Out N o longer eligible based on patient's age to complete this topic Meningococcal B Vacine Aged Out No lo nger eligible based on patient's age to complete this topic Pneumococcal Vaccine: Pediat rics (0 to 5 Years) and At-Risk Patients (6 to 64 Years) Aged Out No longer eligible b ased on patient's age to complete this topic RSV Immunization Patients Un logan 20 months Aged Out No longer eligible b ased on patient's age to complete this topic Varicella Vaccines Aged Out No longer eligible based on patient's age to complete this topic Care Teams Correctional Therapy Teacher Relationship Specialty Start Date End Date Harika Friedman MD PCP - General Internal Medicine 09/16/16
== END 2025-01-23 13:51 | disposition home or self-care (01) ==
PROVIDERS: PCP Family Medicine; Visit Provider Physician Assistant
DX: B34.9 Viral infection, unspecified (principal)

== ENCOUNTER 2025-01-23 12:19 | Outpatient (REF) | payer OTHER, SELFPAY ==
--- OUTSIDE RECORDS SUMMARY | 2025-01-23 15:34 | XMS_ITS | Clinical Summary ---
Author Organization [facility] ity Address [address] [place] [address] Care Team Providers Care Technical Information Specialist Name Role Phone Harika Friedman MD Primary [...] age to complete this topic Care Teams Technical Information Specialist Relationship Specialty Start Date End Date Harika Friedman MD PCP - General Internal Medicine 09/16/16
[2025-01-23 17:42] LABS: Influenza A PCR NEGATIVE (Negative); Influenza B PCR NEGATIVE (Negative); Resp Syncy Virus RNA Qual PCR NEGATIVE (Negative); SARS COV2 PCR INHOUSE POSITIVE (Negative)
== END 2025-01-23 12:20 | disposition home or self-care (01) ==
LOC: HO.LAB 12:19
PROVIDERS: Physician Assistant; PCP Family Medicine
DX: B34.9 Viral infection, unspecified (principal); R09.89 Other specified symptoms and signs involving the circulatory and respiratory systems
CPT/HCPCS: 0241U; 99212

== ENCOUNTER 2025-01-23 13:24 | Outpatient (REF) | payer OTHER, SELFPAY ==
--- NOTE | ~2025-01-23 | XR_ITS ---
EXAMINATION: XR CHEST CLINICAL INFORMATION: R05.9 - Cough, unspecified COMPARISON: None available. TECHNIQUE: 2 views of the chest were obtained. FINDINGS: No consolidation, pleural effusion or pneumothorax. No hyperinflation. Cardiomediastinal silhouette size is normal. Osseous structures are intact. XR/XR chest 2V IMPRESSION: No acute airspace disease. Electronically signed by: Ken Marie MD 01/23/2025 02:29 PM EDT
--- OUTSIDE RECORDS SUMMARY | 2025-01-23 15:54 | XMS_ITS | Clinical Summary ---
Author Organization [facility] ity Address [address] [place] [address] Care Team Providers Care Salesman/Owner Name Role Phone Harika Friedman MD Primary Care Provider [phone] Social History Tobacco Use Types Packs/Day Years [...] age to complete this topic Care Teams Salesman/Owner Relationship Specialty Start Date End Date Harika Friedman MD PCP - General Internal Medicine 09/16/16
== END 2025-01-23 13:25 | disposition home or self-care (01) ==
LOC: HO.HMGCX 13:24
PROVIDERS: PCP Family Medicine; Visit Provider Physician Assistant
DX: R05.9 Cough, unspecified (principal)
CPT/HCPCS: 71046

== ENCOUNTER → 2025-01-23 13:37 | Outpatient (BNV) | payer OTHER, SELFPAY | PROVIDERS: PCP Family Medicine; Visit Provider Radiology Diagnostic Radiology | DX: R05.9 Cough, unspecified (principal) | CPT/HCPCS: 71046 ==

== ENCOUNTER 2025-01-31 10:53 | Outpatient (AMB) | payer OTHER, SELFPAY ==
--- NOTE | 2025-01-31 11:19 | MHC.PC.OV ---
Vital Signs 01/31/25 11:21 01/31/25 11:41 Height 5 ft 5 in Weight 227 lb 8 oz BMI 37.9 BP 150/100 H 140/90 H Blood Pressure Location Rt brachial Rt brachial Position Sitting Sitting Respiration 14 Pulse 78 Pulse Source Pulse Oximeter Temp 98.1 F Temp Source Oral Pulse Oximetry (%) 96 Oxygen Delivery Method Room Air Intake Visit Reasons: Complete Medical Forms Intake Note: patient is schedule to complete return to work forms Mineral Economist Required: Yes Mineral Economist Language: Pig Sticker Name: [id number] Allergies No Known Allergies Allergy (Verified 01/31/25 11:20) Tobacco use date assessed: 11/26/24 Dental Screening Dental Screen Date: 11/26/24 HPI Complete Medical Forms HPI Details 39 y/o female presents today for forms. She had been out sick due to a COVID infection. PFS Medical History (Updated 01/31/25 @ 11:43 by Cas Huhges) Acid reflux Hemoglobin low delivery delivered Family History (Updated 12/12/23 @ 15:37 by Jaylin Horton CMA) Mother High blood pressure High cholesterol Father High blood pressure High cholesterol Cardiovascular disease Cancer Maternal Grandmother High blood pressure Paternal Grandfather High blood pressure Social History (Updated 12/12/23 @ 15:23 by Jaylin Horton CMA) Household Members: Family Housing: House Are you a primary child adolescent care to a significant other at home: No Do you presently have visiting nurse or other home services: No 75 years or older and lives alone: No Alcohol intake: current Alcohol intake frequency: holidays/special occasions only Alcohol type: wine Patient Tobacco Use Status: Never used Tobacco e-Cigarette/Vaping Use: Never Used Special frances needs: Yes service: No Current occupational status: employed Current occupation: Works at [employer] Cognitive needs: No Hearing needs: No Vision needs: No Questionnaire Thrive Questionnaire Date Thrive assessed: 11/23/24 I am a: Patient What is your living situation today?: I have a steady place to live Within the past 12 months, did the food you bought not last and you didn't have the money to get more?: I choose not to answer this question Within the past 12 months, did you worry whether your food would run out before you got money to buy more?: I choose not to answer this question Do you have trouble paying for medicines?: I choose not to answer this question Do you have trouble getting transportation to medical appointments?: Yes Do you have trouble paying your heating and electricity bill?: I choose not to answer this question Do you have trouble taking care of your child, family member or friend?: No Do you have trouble with day-to-day activities such as bathing, preparing meals, shopping, managing finances, etc.?: No Are you currently unemployed and looking for a job?: No Are you interested in more education?: No Please select the resources that you would like help with: None Currently or been in a relationship where the following occur: No concerns reported THRIVE Score: 1 AUDIT C Alcohol Use Questionnaire (AUDIT-C) 2. How many drinks containing alcohol do you have on a typical day when you are drinking?: 1 or 2 Total Score: 0 LAYLA-7 AMB Questionnaire LAYLA-7 Date LAYLA - 7 assessed: 11/26/24 Source: Developed by Drs. Nikhil Kumar, Nichole Azul, Talha Lindquist and colleagues, with an educational trice from [employer]. Review of Systems Const Denies chills, Denies fatigue, Denies fever(s), Denies headache(s) and Denies weakness ENT Denies dizziness and Denies headache(s) Card Denies dyspnea Resp Denies cough, Denies dyspnea, Denies wheezing and Denies other (shortness of breath) Musc Denies numbness and Denies tingling Neuro Denies dizziness, Denies headache(s), Denies numbness, Denies tingling and Denies weakness Psych Denies anxiety and Denies depression Endo Denies fatigue Aller/Immun Denies wheezing Physical exam (Primary Care) Vital Signs: Last Vital Signs Temp 98.1 F 01/31/25 11:21 Pulse 78 01/31/25 11:21 Resp 14 01/31/25 11:21 BP 140/90 H 01/31/25 11:41 Pulse Ox 96 01/31/25 11:21 Oxygen Delivery Method Room Air 01/31/25 11:21 BMI result Body Mass Index 37.9 Tobacco/Smoking Status: Tobacco use Status Tobacco use date assessed 11/26/24 01/31/25 11:25 Patient Tobacco Use Status Never used Tobacco 03/20/25 11:25 e-Cigarette/Vaping Use Never Used 01/31/25 11:25 Thrive Assessment: Date of Thrive Assessment Date Thrive assessed 11/23/24 01/31/25 11:25 Currently or been in a relationship where the following occur: No concerns reported Const General: well developed; No acute distress Nutritional Appearance: well nourished and obese Orientation/consciousness: patient oriented x3 [facility] Head: Yes normocephalic and Yes atraumatic Eyes General: appearance normal, both eyes and all related structures Pupils: Equal, round and reactive pupils present EOM: EOMs intact bilaterally Resp Effort & Inspection: normal respiratory effort Auscultation: clear to auscultation bilaterally Cardio Rate: regular rate Rhythm: regular rhythm Heart sounds: S1 normal heart sound present, S2 normal heart sound present, no gallops, no murmurs and no rubs Neuro General: patient oriented x3 and gait normal Cranial nerves: Yes Equal, round and reactive pupils present Psych Affect: normal affect Coding Level of Care Code Est Pt Level 3 (21512) Diagnoses History of COVID-19 Z86.16 Assessment & Plan Assessment & Plan (1) History of COVID-19: Code(s): Z86.16 - Personal history of COVID-19 Category: Medical Plan: Patient?presented?for continuous?leave?due?to?COVID-19?infection?and?FMLA?paperwork?as?well?as?return?to?work?paperwork She?went?to?the?walk-in?on?January??and?tested?positive?for?COVID She?was?out?of?work?from?January??through?January?17?and?returned?to?work?on?January?. Patient?is?feeling?well. Lungs?are?clear?today. He?has?already?begun?work?since?January??and?requires?no?restrictions. FMLA?paperwork?completed?and?return?to?work?without?restrictions?form?completed
[2025-01-31 11:21] VITALS: BP 150/100; PULSE 78; RESP 14; TEMP 36.7; O2SAT 96; BMI 37.9
[2025-01-31 11:41] VITALS: BP 140/90
--- OUTSIDE RECORDS SUMMARY | 2025-01-31 12:50 | XMS_ITS | Clinical Summary ---
Author Organization [facility] ity Address [address] [place] [address] Care Team Providers Care Astrochemist Name Role Phone Harika Friedman MD Primary Care Provider [phone] Social History Tobacco Use Types Packs/Day Years [...] age to complete this topic Care Teams Astrochemist Relationship Specialty Start Date End Date Harika Friedman MD PCP - General Internal Medicine 09/16/16
== END 2025-01-31 14:56 | disposition home or self-care (01) ==
LOC: HO.HMCFM 10:54
PROVIDERS: PCP Family Medicine; Visit Provider Family Medicine
DX: Z86.16 Personal history of COVID-19 (principal)

== ENCOUNTER → 2025-01-31 10:53 | Outpatient (BNVA) | payer OTHER, SELFPAY | PROVIDERS: PCP Family Medicine; Visit Provider Family Medicine | DX: Z86.16 Personal history of COVID-19 (principal) | CPT/HCPCS: 99212 ==

== ENCOUNTER 2025-02-13 14:20 | Outpatient (AMB) | payer OTHER, SELFPAY ==
--- NOTE | 2025-02-13 15:22 | MHC.OFFWIV ---
Intake Vital Signs 02/13/25 15:25 Weight 227 lb BP 126/80 Blood Pressure Location Lt brachial Position Sitting Pulse 90 Pulse Source Pulse Oximeter Pulse Oximetry (%) 98 Oxygen Delivery Method Room Air Intake Visit Reasons: EP-rt side neck pain/headaches Intake Note: Patient here for right side of neck pain and is now having headaches that started yesterday. Patient Tobacco Use Status: Never used Tobacco Web Ui Developer Required: Yes Allergies No Known Allergies Allergy (Verified 02/13/25 15:26) Do you need a note to return to daycare/school/sports/work: No HPI HPI Comments History of Present Illness Details Latvian video dobby loom weaver used for this visit. History of Present Illness - The patient is a 39 year old female presenting with headache and neck swelling x2 days. - Reports experiencing a strong headache and top of her shoulder swelling without any known antecedent trauma or injury. - Pain exacerbates with movement, describing it as severe and causing significant discomfort. - Denies any recent fever, car accidents, or nausea typically associated with her migraines but feels this is different from the usual migraine episodes, despite increased pain intensity. Admits to sensitivity to light but not sound and denies any nausea or vomiting - Documented history of bilateral trapezius muscle strain in August of 2024 with left-sided predominance; previous physical therapy was helpful. - No effective relief with current OTC medications. Physical Exam General: Cooperative, healthy appearing, comfortable, no acute distress and well developed Orientation: Patient oriented x3 Limitations: No limitations Head: Strong headache reported Ears: Hearing grossly normal bilaterally Nose: Normal External nose present Face and sinus: Normal facial exam Eyes: Appearance normal, both eyes and all related structures Neck: Normal appearing, full ROM Respiratory: Normal respiratory effort and able to speak in complete sentences. Skin: No rashes or lesions noted Neuro: Patient oriented x3 Back/spine: No tenderness to palpation of the cervical spine or the thoracic spine. Patient is tender on the right trapezius which is also stiff. Extremities: Normal to inspection, right shoulder full ROM [facility] Medical History (Updated 02/13/25 @ 16:16 by Tuyet Lock PA-C) Acid reflux Hemoglobin low delivery delivered Family History (Updated 12/12/23 @ 15:37 by Jaylin Horton CURRICULUM DEVELOPMENT MANAGER) Mother High blood pressure High cholesterol Father High blood pressure High cholesterol Cardiovascular disease Cancer Maternal Grandmother High blood pressure Paternal Grandfather High blood pressure Social History (Updated 12/12/23 @ 15:23 by Jaylin Horton [facility]) Household Members: Family Housing: House Are you a primary personal care service provider to a significant other at home: No Do you presently have visiting nurse or other home services: No 75 years or older and lives alone: No Alcohol intake: current Alcohol intake frequency: holidays/special occasions only Alcohol type: wine Patient Tobacco Use Status: Never used Tobacco e-Cigarette/Vaping Use: Never Used Special frances needs: Yes service: No Current occupational status: employed Current occupation: Works at [employer] Cognitive needs: No Hearing needs: No Vision needs: No Review of Systems Const All systems reviewed & are unremarkable except as noted in HPI and below Physical Exam Vital Signs: Last Vital Signs Pulse 90 02/13/25 15:25 BP 126/80 02/13/25 15:25 Pulse Ox 98 02/13/25 15:25 Oxygen Delivery Method Room Air 02/13/25 15:25 Assessment & Plan Assessment & Plan (1) Trapezius muscle strain: Code(s): S46.819A - Strain of other muscles, fascia and tendons at shoulder and upper arm level, unspecified arm, initial encounter Qualifiers: Encounter type: initial encounter Laterality: right Qualified Code(s): S46.811A - Strain of other muscles, fascia and tendons at shoulder and upper arm level, right arm, initial encounter Plan: Cyclobenzaprine was prescribed to help alleviate muscle tension contributing to the headache and neck swelling, with flexibility in dosage based on the patient's response. A referral to physical therapy was made to address the neck muscle tightness, expected to support and enhance treatment outcomes alongside the medication. Recommendations for pain management were provided, suggesting 1000mg acetaminophen every 8 hours or ibuprofen 600 mg every 6 hours as needed, can also use heating pad. Arrangements were made for medication pick-up and physical therapy sessions, aiming for comprehensive care addressing both symptoms and underlying muscle strain. Patient was informed and verbally consented to the use of an ambient scribe for clinic note documentation during this visit. (2) Trapezius muscle spasm: Code(s): M62.838 - Other muscle spasm Plan: as above Orders: Orders PT Evaluation and Treatment Today M62.838 - Other muscle spasm, S46.819A - Strain of other muscles, fascia and tendons at shoulder and upper arm level, unspecified arm, initial encounter Medications: New cyclobenzaprine 5 mg PO Q8H PRN 30 tabs 0RF Muscle Spasm Coding Level of Care Code Est Pt Level 4 (98112) Diagnoses Strain of right trapezius muscle, initial encounter S46.811A Encounter type: initial encounter Laterality: right Trapezius muscle spasm M62.838
[2025-02-13 15:25] VITALS: BP 126/80; PULSE 90; O2SAT 98
--- OUTSIDE RECORDS SUMMARY | 2025-02-13 17:08 | XMS_ITS | Clinical Summary ---
Author Organization [facility] ity Address [address] [place] [address] Care Team Providers Care Dam Tender Name Role Phone Harika Friedman MD Primary [...] age to complete this topic Care Teams Dam Tender Relationship Specialty Start Date End Date Harika Friedman MD PCP - General Internal Medicine 09/16/16
== END 2025-02-13 15:58 | disposition home or self-care (01) ==
PROVIDERS: PCP Family Medicine; Visit Provider Physician Assistant
DX: S46.811A Strain of other muscles, fascia and tendons at shoulder and upper arm level, right arm, initial encounter (principal); M62.838 Other muscle spasm

== ENCOUNTER → 2025-02-13 14:20 | Outpatient (BNVA) | payer OTHER, SELFPAY | PROVIDERS: PCP Family Medicine; Visit Provider Physician Assistant | DX: S46.811A Strain of other muscles, fascia and tendons at shoulder and upper arm level, right arm, initial encounter (principal); M62.838 Other muscle spasm | CPT/HCPCS: 99212 ==

== ENCOUNTER 2025-02-25 10:36 | Outpatient (AMB) | payer OTHER, SELFPAY ==
--- NOTE | 2025-02-25 11:01 | MHC.PC.OV ---
Vital Signs 02/25/25 11:05 02/25/25 11:08 Height 5 ft 5 in Weight 225 lb 6 oz BMI 37.5 BP 140/70 H 140/70 H Blood Pressure Location Rt brachial Rt brachial Position Sitting Sitting Respiration 14 Pulse 75 Pulse Source Pulse Oximeter Temp 99.6 F Temp Source Oral Pulse Oximetry (%) 98 Oxygen Delivery Method Room Air Intake Visit Reasons: f/u htn, blood sugars Wind Plant Manager Required: Yes Wind Plant Manager Language: Citizen Of [place] Allergies No Known Allergies Allergy (Verified 02/25/25 11:02) Medication List - Last Reconciled 02/25/25 by Brooks Wolf MD cyclobenzaprine 5 mg PO Q8H PRN losartan 50 mg PO DAILY 90 days metformin 500 mg PO DAILY 90 days naproxen 500 mg PO BID 30 days Tobacco use date assessed: 11/26/24 Dental Screening Dental Screen Date: 11/26/24 HPI f/u htn, blood sugars HPI Details 39 y/o female presents to f/u HTN, blood sugars. Blood pressure today 140/70, 75p. She is on losartan 50mg daily. A1c today 02/25/25 5.1%. Hx of prediabetes. She reports ongoing back pain. [facility] Medical History (Updated 02/25/25 @ 11:40 by Cas Hughes) Acid reflux Hemoglobin low delivery delivered Family History (Updated 12/12/23 @ 15:37 by Jaylin Horton [facility]) Mother High blood pressure High cholesterol Father High blood pressure High cholesterol Cardiovascular disease Cancer Maternal Grandmother High blood pressure Paternal Grandfather High blood pressure Social History (Updated 12/12/23 @ 15:23 by Jaylin Horton [facility]) Household Members: Family Housing: House Are you a primary rn urgent care to a significant other at home: No Do you presently have visiting nurse or other home services: No 75 years or older and lives alone: No Alcohol intake: current Alcohol intake frequency: holidays/special occasions only Alcohol type: wine Patient Tobacco Use Status: Never used Tobacco e-Cigarette/Vaping Use: Never Used Special frances needs: Yes service: No Current occupational status: employed Current occupation: Works at [employer] Cognitive needs: No Hearing needs: No Vision needs: No Questionnaire Thrive Questionnaire Date Thrive assessed: 11/23/24 I am a: Patient What is your living situation today?: I have a steady place to live Within the past 12 months, did the food you bought not last and you didn't have the money to get more?: I choose not to answer this question Within the past 12 months, did you worry whether your food would run out before you got money to buy more?: I choose not to answer this question Do you have trouble paying for medicines?: I choose not to answer this question Do you have trouble getting transportation to medical appointments?: Yes Do you have trouble paying your heating and electricity bill?: I choose not to answer this question Do you have trouble taking care of your child, family member or friend?: No Do you have trouble with day-to-day activities such as bathing, preparing meals, shopping, managing finances, etc.?: No Are you currently unemployed and looking for a job?: No Are you interested in more education?: No Please select the resources that you would like help with: None Currently or been in a relationship where the following occur: No concerns reported THRIVE Score: 1 LAYLA-7 AMB Questionnaire LAYLA-7 Date LAYLA - 7 assessed: 11/26/24 Source: Developed by Drs. Nikhil Kumar, Nichole Azul, Talha Lindquist and colleagues, with an educational trice from [employer]. Review of Systems Const Denies chills, Denies fatigue, Denies fever(s), Denies headache(s) and Denies weakness ENT Denies dizziness and Denies headache(s) Card Denies dyspnea Resp Denies cough, Denies dyspnea, Denies wheezing and Denies other (shortness of breath) Musc Denies numbness and Denies tingling Neuro Denies dizziness, Denies headache(s), Denies numbness, Denies tingling and Denies weakness Psych Denies anxiety and Denies depression Endo Denies fatigue Aller/Immun Denies wheezing Physical exam (Primary Care) Vital Signs: Last Vital Signs Temp 99.6 F 02/25/25 11:05 Pulse 75 02/25/25 11:05 Resp 14 02/25/25 11:05 BP 140/70 H 02/25/25 11:08 Pulse Ox 98 02/25/25 11:05 Oxygen Delivery Method Room Air 02/25/25 11:05 BMI result Body Mass Index 37.5 Tobacco/Smoking Status: Tobacco use Status Tobacco use date assessed 11/26/24 02/25/25 11:08 Patient Tobacco Use Status Never used Tobacco 02/25/25 11:08 e-Cigarette/Vaping Use Never Used 02/25/25 11:08 Thrive Assessment: Date of Thrive Assessment Date Thrive assessed 11/23/24 02/25/25 11:08 Currently or been in a relationship where the following occur: No concerns reported Const General: well developed; No acute distress Nutritional Appearance: well nourished Orientation/consciousness: patient oriented x3 HENMT Head: Yes normocephalic and Yes atraumatic Eyes General: appearance normal, both eyes and all related structures Pupils: Equal, round and reactive pupils present EOM: EOMs intact bilaterally Resp Effort & Inspection: normal respiratory effort Neuro General: patient oriented x3 and gait normal Cranial nerves: Yes Equal, round and reactive pupils present Psych Affect: normal affect Results AMB Hemoglobin A1c AMB Hemoglobin A1c 5.1 % Last Edit by JEFERSON Lunsford on 02/25/25 11:13 Results Reviewed Results Reviewed: Laboratory Last Values Hgb A1c (Clinic) 5.1 % (4.0-6.0) 02/25/25 11:10 Coding Level of Care Code Est Pt Level 4 (88633) Diagnoses Diabetes E11.9 Hypertension I10 Back pain M54.9 Assessment & Plan Assessment & Plan (1) Diabetes: Code(s): E11.9 - Type 2 diabetes mellitus without complications Category: Medical Plan: A1c?5.1%.??Good?control.??Goal?is?less?than?7.0% Continue?current?medication (2) Hypertension: Code(s): I10 - Essential (primary) hypertension Category: Medical Plan: Blood?pressure?is too?high.??Goal?is?less?than?140/90 Will?change?losartan?50?mg?daily?to?losartan-hydrochlorothiazide?50/12.5?mg?daily. (3) Back pain: Code(s): M54.9 - Dorsalgia, unspecified Category: Medical Plan: Ongoing?R trapezius?muscle?pain?and?posterior?shoulder/back?pain Patient?said?she?briefly?tried?physical?therapy?but?has?had?worsened?pain Will?refer?to?physiatry Continue?naproxen Orders: Orders AMB Hemoglobin A1c Today E11.9 - Type 2 diabetes mellitus without complications Referrals Physiatry Referral M54.9 - Dorsalgia, unspecified, M62.838 - Other muscle spasm Medications: New losartan-hydrochlorothiazide 50-12.5 mg 1 tab PO DAILY 90 days 90 tabs 3RF Discontinued losartan Discontinued Reason: Doctor's Order 50 mg PO DAILY 90 days 90 tabs 3RF
[2025-02-25 11:05] VITALS: BP 140/70; PULSE 75; RESP 14; TEMP 37.6; O2SAT 98; BMI 37.5
[2025-02-25 11:08] VITALS: BP 140/70
--- OUTSIDE RECORDS SUMMARY | 2025-02-25 12:15 | XMS_ITS | Clinical Summary ---
Author Organization [facility] ity Address [address] [place] [address] Care Team Providers Care Primary Substance Abuse Counselor Name Role Phone Harika Friedman MD Primary [...] - 2023-2 5 season) 2024 Influenza Vaccine (Season Ended) 2025 HIB Vaccines Aged Out No longer eligi [...] age to complete this topic Meningococcal B Vaccine Aged Out No l onger eligible based on patient's age to complete [...] age to complete this topic Care Teams Primary Substance Abuse Counselor Relationship Specialty Start Date End Date Harika Friedman MD PCP - General Internal Medicine 09/16/16
== END 2025-02-25 11:43 | disposition home or self-care (01) ==
PROVIDERS: PCP Family Medicine; Visit Provider Family Medicine
DX: E11.9 Type 2 diabetes mellitus without complications (principal); I10 Essential (primary) hypertension; M54.9 Dorsalgia, unspecified

== ENCOUNTER → 2025-02-25 10:36 | Outpatient (BNVA) | payer OTHER, SELFPAY | PROVIDERS: PCP Family Medicine; Visit Provider Family Medicine | DX: E11.9 Type 2 diabetes mellitus without complications (principal); I10 Essential (primary) hypertension; M54.9 Dorsalgia, unspecified | CPT/HCPCS: 83036; 99212 ==

== ENCOUNTER 2025-05-31 10:27 | Outpatient (AMB) | payer OTHER, SELFPAY ==
--- NOTE | 2025-05-31 10:47 | A.OFFPC_ITS ---
Vital Signs 05/31/25 10:48 Height 5 ft 5 in Weight 227 lb 8 oz BMI 37.9 BP 110/70 Blood Pressure Location Rt brachial Position Sitting Respiration 14 Pulse 93 Pulse Source Pulse Oximeter Temp 98.3 F Temp Source Oral Pulse Oximetry (%) 97 Oxygen Delivery Method Room Air Intake Visit Reasons: f/u HTN Intake Note: patient is scheduled to follow up for htn Field Account Manager Required: Yes Field Account Manager Language: Master Fire Control Technician Name: [id number] Allergies No Known Allergies Allergy (Verified 05/31/25 10:48) Medication List - Last Reconciled 05/31/25 by Brooks Wolf MD cyclobenzaprine 5 mg PO Q8H PRN losartan-hydrochlorothiazide 50-12.5 mg 1 tab PO DAILY 90 days metformin 500 mg PO DAILY 90 days naproxen 500 mg PO BID 30 days Tobacco use date assessed: 11/26/24 Dental Screening Dental Screen Date: 11/26/24 HPI f/u HTN HPI Details 39 y/o female presents to f/u HTN, diabe phu. Had changed losartan to losartan-HCTZ. Last A1c 02/25/25 5.1%. A1c today 05/31/25 is She is on metformin 500mg daily. BP today 110/70, 93p. She is on losartan-HCTZ 50-12.5mg daily. Pt notes ongoing concerns about her weight. HPI Comments History of Present Illness Details Documentation assistance for Brooks Wolf MD, was provided by Cas Hughes,? Careers Counsellor on 05/31/2025 at 11:13 AM EST. I, Dr. Wolf, have read, ob served, and verified documentation. ?? PFSH Medical History (Updated 05/31/25 @ 11:22 by Cas Hughes) Acid reflux Hemoglobin low delivery delivered Family History (Updated 12/12/23 @ 15:37 by Jaylin Hotron CMA) Mother High blood pressure High cholesterol Father High blood pressure High cholesterol Cardiovascular disease Cancer Maternal Grandmother High blood pressure Paternal Grandfather High blood pressure Social History (Updated 12/12/23 @ 15:23 by Jaylin Horton CMA) Household Members: Family Housing: House Are you a primary healthcare network consultant to a significant other at home: No Do you presently have visiting nurse or other home services: No 75 years or older and lives alone: No Alcohol intake: current Alcohol intake frequency: holidays/special occasions only Alcohol type: wine Patient Tobacco Use Status: Never used Tobacco e-Cigarette/Vaping Use: Never Used Special frances needs: Yes service: No Current occupational status: employed Current occupation: Works at [employer] Cognitive needs: No Hearing needs: No Vision needs: No Questionnaire Thrive Questionnaire Date Thrive assessed: 11/23/24 I am a: Patient What is your living situation today?: I have a steady place to live Within the past 12 months, did the food you bought not last and you didn't have the money to get more?: I choose not to answer this question Within the past 12 months, did you worry whether your food would run out before you got money to buy more?: I choose not to answer this question Do you have trouble paying for medicines?: I choose not to answer this question Do you have trouble getting transportation to medical appointments?: Yes Do you have trouble paying your heating and electricity bill?: I choose not to answer this question Do you have trouble taking care of your child, family member or friend?: No Do you have trouble with day-to-day activities such as bathing, preparing meals, shopping, managing finances, etc.?: No Are you currently unemployed and looking for a job?: No Are you interested in more education?: No Please select the resources that you would like help with: None Currently or been in a relationship where the following occur: No concerns reported THRIVE Score: 1 LAYLA-7 AMB Questionnaire LAYLA-7 Date LAYLA - 7 assessed: 11/26/24 Source: Developed by Drs. Nikhil Kumar, Nichole Azul, Talha Lindquist and colleagues, with an educational trice from [employer]. Review of Systems Const Denies chills, Denies fatigue, Denies fever(s), Denies headache(s) and Denies weakness ENT Denies dizziness and Denies headache(s) Card Denies dyspnea Resp Denies cough, Denies dyspnea, Denies wheezing and Denies other (shortness of breath) Musc Denies numbness and Denies tingling Neuro Denies dizziness, Denies headache(s), Denies numbness, Denies tingling and Denies weakness Psych Denies anxiety and Denies depression Endo Denies fatigue Aller/Immun Denies wheezing Physical exam (Primary Care) Vital Signs: Last Vital Signs Temp 98.3 F 05/31/25 10:48 Pulse 93 05/31/25 10:48 Resp 14 05/31/25 10:48 BP 110/70 05/31/25 10:48 Pulse Ox 97 05/31/25 10:48 Oxygen Delivery Method Room Air 05/31/25 10:48 BMI result Body Mass Index 37.9 Tobacco/Smoking Status: Tobacco use Status Tobacco use date assessed 11/26/24 05/31/25 10:54 Patient Tobacco Use Status Never used Tobacco 05/31/25 10:54 e-Cigarette/Vaping Use Never Used 05/31/25 10:54 Thrive Assessment: Date of Thrive Assessment Date Thrive assessed 11/23/24 05/31/25 10:54 Currently or been in a relationship where the following occur: No concerns reported Const General: well developed; No acute distress Nutritional Appearance: well nourished Orientation/consciousness: patient oriented x3 HENMT Head: Yes normocephalic and Yes atraumatic Eyes General: appearance normal, both eyes and all related structures Pupils: Equal, round and reactive pupils present EOM: EOMs intact bilaterally Resp Effort & Inspection: normal respiratory effort Auscultation: clear to auscultation bilaterally Cardio Rate: regular rate Rhythm: regular rhythm Heart sounds: S1 normal heart sound present, S2 normal heart sound present, no gallops, no murmurs and no rubs Neuro General: patient oriented x3 and gait normal Cranial nerves: Yes Equal, round and reactive pupils present Psych Affect: normal affect Coding Level of Care Code Est Pt Level 4 (67653) Diagnoses Hypertension I10 Diabetes E11.9 Obesity E66.9 Assessment & Plan Assessment & Plan (1) Hypertension: Code(s): I10 - Essential (primary) hypertension Category: Medical Plan: Blood pressure appears well controlled after adding hydrochlorothiazide to her losartan as combo pill. Goal is less than 140/90 Continue current medications (2) Diabetes: Code(s): E11.9 - Type 2 diabetes mellitus without complications Category: Medical Plan: A1c 5.6%. Good control. Goal is less than 7.0% Continue current medications Patient was referred to Ophthalmology in November. Reminded her to try to follow through on 1 appointment with Ophthalmology per year. She has concern regarding cost in I advised her to talk her insurance company. (3) Obesity: Code(s): E66.9 - Obesity, unspecified Category: Medical Plan: Patient concern about obesity and would like a referral to metabolic clinic BMI 37.9 Referred Orders: Orders Complete Blood Count Auto Diff Today Z00.00 - Encounter for general adult medical examination without abnormal findings Microalbumin, Random (w Creat) Today I10 - Essential (primary) hypertension UA CC w/rflx Micro + Cult Today Z00.00 - Encounter for general adult medical examination without abnormal findings TSH reflex Free T4 Today Z00.00 - Encounter for general adult medical examination without abnormal findings Hemoglobin A1c Today R73.01 - Impaired fasting glucose Comprehensive [place]. Panel Fast Today Z00.00 - Encounter for general adult medical examination without abnormal findings Lipid Panel Today Z00.00 - Encounter for general adult medical examination without abnormal findings Referrals Metabolic Clinic Referral E11.9 - Type 2 diabetes mellitus without complications, E66.9 - Obesity, unspecified
[2025-05-31 10:48] VITALS: BP 110/70; PULSE 93; RESP 14; TEMP 36.8; O2SAT 97; BMI 37.9
--- OUTSIDE RECORDS SUMMARY | 2025-05-31 10:52 | XMS_ITS | Clinical Summary ---
Author Organization [facility] Address [address] [place] [address] Care Team Providers Care Catalyst Plant Supervisor Name Role Phone Harika Friedman MD Primary Care Provider [phone] Social History Tobacco Use Types Packs/Day Years [...] 2023-2 5 season) 2024 Influenza Vaccine (#1) 2025 HIB Vaccines Aged Out No longer [...] 5 Years) and At-Risk Patients (6 to 49 Years) Aged Out No longer eligible b ased on patient's age to complete this topic RSV Immunization Patients Un logan 20 months Aged Out No longer eligible b ased on patient's age to complete this topic Varicella Vaccines Aged Out No longer eligible based on patient's age to complete this topic Care Teams Catalyst Plant Supervisor Relationship Specialty Start Date End Date Harika Friedman MD PCP - General Internal Medicine 09/16/16
== END 2025-05-31 11:25 | disposition home or self-care (01) ==
LOC: HO.HMCFM 10:28
PROVIDERS: PCP Family Medicine; Visit Provider Family Medicine
DX: I10 Essential (primary) hypertension (principal); E11.9 Type 2 diabetes mellitus without complications; E66.9 Obesity, unspecified; Z68.37 Body mass index [BMI] 37.0-37.9, adult

== ENCOUNTER 2025-06-27 10:17 | Outpatient (AMB) | payer OTHER, SELFPAY ==
--- NOTE | 2025-06-27 10:34 | MHC.OFFVIS ---
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 Patient was referred by her PCP Brooks Wolf, 02/25/25. Patient has tried physical therapy with no relief, caused the pain to increase. At today's visit she states that over a year she has had lower back pain that radiates down the right leg. She reports that she has constant numbness and tingling. Patient added that she has not tried injections. Process Automation Engineer Required: Yes Process Automation Engineer Services: Process Automation Engineer Present Process Automation Engineer Name: [id number] Allergies No Known Allergies Allergy (Verified 06/27/25 10:38) Medication List - Last Reconciled 06/27/25 by Dayana Kong MD cyclobenzaprine 5 mg PO Q8H PRN losartan-hydrochlorothiazide 50-12.5 mg 1 tab PO DAILY 90 days metformin 500 mg PO DAILY 90 days naproxen 500 mg PO BID 30 days HPI Comments Details: 1 year of back pain. Had gone to PT with initial improvement but pain has returned after. Actually she was referred to PT for shoulder pain (separate issue from the back and she did not have back pain yet at that time). After she finished PT for shoulder, that's when she started feeling the back pain. No PT specifically for the back pain. No xrays yet. Low back pain left side, radiates to left lateral knee area, not lower. No numbness. [facility] Medical History (Updated 06/27/25 @ 10:50 by Dayana Kong MD) Acid reflux Hemoglobin low delivery delivered Family History (Updated 12/12/23 @ 15:37 by Jaylin Horton [facility]) Mother High blood pressure High cholesterol Father High blood pressure High cholesterol Cardiovascular disease Cancer Maternal Grandmother High blood pressure Paternal Grandfather High blood pressure Social History (Updated 06/27/25 @ 10:38 by Renee Olea) Household Members: Family Housing: House Are you a primary resident care technician to a significant other at home: No Do you presently have visiting nurse or other home services: No 75 years or older and lives alone: No Alcohol intake: current Alcohol intake frequency: holidays/special occasions only Alcohol type: wine Patient Tobacco Use Status: Never used Tobacco e-Cigarette/Vaping Use: Never Used Special frances needs: Yes service: No Current occupational status: employed Current occupation: Works at [employer] Cognitive needs: No Hearing needs: No Vision needs: No Physical Exam Exam Exam: Constitutional: Patient appears to be in no acute distress, well nourished and well developed. Patient was appropriately conversant and oriented. Good historian. MSK: No specific abnormalities found on inspection of the spine and all extremities. No pain with palpation over the lumbar area. Focal tenderness over left SI joint. No tenderness over GT. Lumbar ROM was full. Bilateral hip, knee and ankle ROM WNL. No ligamentous laxity or crepitance. No increased effusion. Straight-leg raising test negative. FABERE test positive left. Strength is 5/5 in all muscle groups tested. No increased tone noted. Neurological: Neurologic examination of the upper and lower extremities was nonfocal with intact sensation, muscle stretch reflexes and without focal motor deficits . Alonso?s negative bilaterally. Babinski was down going bilaterally. Clonus was negative. Gait is non-antalgic without loss of balance. Results Reviewed Results Reviewed: Reviewed notes from PCP. Assessment & Plan Assessment & Plan (1) Sacroiliac joint dysfunction of left side: Code(s): M53.3 - Sacrococcygeal disorders, not elsewhere classified Category: Medical Plan Most of her pain is left SI joint. I think she had to do exercises in PT for the shoulder that she was not used to, probably causing/exacerbating left SI joint dysfunction. Will refer her to PT for this. Will also get lumbar xrays and pelvic/SI joint xrays to make sure we don't miss anything else. Assessment and plan discussed with patient, and patient was agreeable. All questions were answered thoroughly. Dayana Kong MD, CHAR Board Certified, [place] Board of Physical Medicine and Rehabilitation (ABPMR) Board Certified, [place] Board of Electrodiagnostic Medicine (ABEM) Orders: Orders XR lumbar spine 2-3V Today M53.3 - Sacrococcygeal disorders, not elsewhere classified, M54.9 - Dorsalgia, unspecified PT Evaluation and Treatment Today M53.3 - Sacrococcygeal disorders, not elsewhere classified XR sacroiliac joint min 3V Today M53.3 - Sacrococcygeal disorders, not elsewhere classified Coding Level of Care Code New Pt Level 4 (09067) Diagnoses Sacroiliac joint dysfunction of left side M53.3
--- OUTSIDE RECORDS SUMMARY | 2025-06-27 11:23 | XMS_ITS | Clinical Summary ---
[facility] [address] [place] [address] Care Team Providers Care Psychology Department Chair Name Role Phone Harika Friedman MD Primary [...] Cervical Cancer Screening: P ap Smear 2007 HIV Screening 10/12/2022 Hepatitis C Screening 10/12/2022 Social Influencers of Health Screening 10/12/2022 COVID-19 Vaccine (1 - 2023-2 5 season) 2024 Depression Screening 11/14/2024 Influenza Vaccine (#1) 2025 HIB Vaccines Aged [...] age to complete this topic Care Teams Psychology Department Chair Relationship Specialty Start Date End Date Harika Friedman MD PCP - General Internal Medicine 09/16/16
--- OUTSIDE RECORDS SUMMARY | 2025-06-27 11:23 | XMS_ITS | Encounter Summary ---
Author Organization [facility] Address [address] [place] [address] Care Team Providers Care Adding Machine Mechanic Name Role Phone Harika Friedman MD Primary Care Provider Unavail able Encounter Details Date Type Department Care Team Description 09/17/2016 Release of Information Medical Records [address] [place] [id number] Abstract, Provider Social History Tobacco Use Types Packs/Day Years Used Date Smoking Tobacco: Never Assessed Sex Assigned at Date Recorded Not on file documented as of this encounter Plan of Treatment Not on file documented as of this encounter Visit Diagnoses Not on filedocumented in this encounter Care Teams Adding Machine Mechanic Relationship Specialty Start Date End Date Harika Friedman MD PCP - General Internal Medicine 09/16/16 documented as of this encounter
== END 2025-06-27 10:59 | disposition home or self-care (01) ==
LOC: HO.HOS 10:28
PROVIDERS: PCP Family Medicine; Visit Provider Physical Medicine & Rehabilitation
DX: M53.3 Sacrococcygeal disorders, not elsewhere classified (principal)
CPT/HCPCS: 99203

== ENCOUNTER 2025-06-27 10:17 | Outpatient (REF) | payer OTHER, SELFPAY | END 2025-06-27 10:18 | disposition home or self-care (01) | LOC: HO.HOSX 10:17 | PROVIDERS: PCP Family Medicine; Visit Provider Physical Medicine & Rehabilitation | DX: Z13.89 Encounter for screening for other disorder (principal) ==

== ENCOUNTER 2025-08-08 08:50 | Outpatient (AMB) | payer OTHER, SELFPAY ==
--- NOTE | 2025-08-08 08:52 | MHC.OFFVIS ---
Vital Signs 08/08/25 08:59 Height 5 ft 5 in Weight 238 lb BMI 39.6 Intake Visit Reasons: OV-Lower back pain follow up after PT Intake Note: Katya is a 39 year old female who presents today as a follow up for lower back pain. At last visit we discussed and referred her to physical therapy. At today's visit she states that she has not started physical therapy, booked for 08/30/25. Patient states that the lower back pain is still radiating into the left leg. She states that she is doing her at home exercises. Compress Machine Operator Required: Yes Compress Machine Operator Services: Compress Machine Operator Present Compress Machine Operator Name: [id number] Allergies No Known Allergies Allergy (Verified 08/08/25 08:59) Medication List - Last Reconciled 08/08/25 by Dayana Kong MD cyclobenzaprine 5 mg PO Q8H PRN losartan-hydrochlorothiazide 50-12.5 mg 1 tab PO DAILY 90 days metformin 500 mg PO DAILY 90 days naproxen 500 mg PO BID 30 days HPI Comments Details: 1 year of back pain. Had gone to PT with initial improvement but pain has returned after. Actually she was referred to PT for shoulder pain (separate issue from the back and she did not have back pain yet at that time). After she finished PT for shoulder, that's when she started feeling the back pain. No PT specifically for the back pain. No xrays yet. Low back pain left side, radiates to left lateral knee area, not lower. No numbness. Last seen 06/27/25. Ordered PT which patient did not go to. Ordered lumbar and pelvic xrays which patient did not go to. Pain is in the same side, same area. [facility] Medical History (Updated 06/27/25 @ 10:50 by Dayana Kong MD) Acid reflux Hemoglobin low delivery delivered Family History (Updated 12/12/23 @ 15:37 by Jaylin Horton [facility]) Mother High blood pressure High cholesterol Father High blood pressure High cholesterol Cardiovascular disease Cancer Maternal Grandmother High blood pressure Paternal Grandfather High blood pressure Social History (Updated 06/27/25 @ 10:38 by Renee Olea) Household Members: Family Housing: House Are you a primary direct care provider to a significant other at home: No Do you presently have visiting nurse or other home services: No 75 years or older and lives alone: No Alcohol intake: current Alcohol intake frequency: holidays/special occasions only Alcohol type: wine Patient Tobacco Use Status: Never used Tobacco e-Cigarette/Vaping Use: Never Used Special frances needs: Yes service: No Current occupational status: employed Current occupation: Works at [employer] Cognitive needs: No Hearing needs: No Vision needs: No Physical Exam Exam Exam: Constitutional: Patient appears to be in no acute distress, well nourished and well developed. Patient was appropriately conversant and oriented. Good historian. MSK: No specific abnormalities found on inspection of the spine and all extremities. No pain with palpation over the lumbar area. Focal tenderness over left SI joint. No tenderness over GT. Lumbar ROM was full. Neurological: Neurologic examination of the upper and lower extremities was nonfocal with intact sensation, muscle stretch reflexes and without focal motor deficits . Babinski was down going bilaterally. Clonus was negative. Gait is non-antalgic without loss of balance. Vital Signs: BMI result Body Mass Index 39.6 Assessment & Plan Assessment & Plan (1) Sacroiliac joint dysfunction of left side: Code(s): M53.3 - Sacrococcygeal disorders, not elsewhere classified Category: Medical Plan Most of her pain is left SI joint. While in the room, she called PT to schedule appointment. Sending her for the xrays that she did not do since last visit. Reviewed images. Unremarkable SI joint x-ray. Disc spaces preserved. Assessment and plan discussed with patient, and patient was agreeable. All questions were answered thoroughly. Follow up 3 months. Dayana Kong MD, CHAR Board Certified, [place] Board of Physical Medicine and Rehabilitation (ABPMR) Board Certified, [place] Board of Electrodiagnostic Medicine (ABEM) Coding Level of Care Code Est Pt Level 4 (81628) Diagnoses Sacroiliac joint dysfunction of left side M53.3
[2025-08-08 08:59] VITALS: BMI 39.6
--- OUTSIDE RECORDS SUMMARY | 2025-08-08 09:27 | XMS_ITS | Clinical Summary ---
[facility] Address [address] [place] [address] Care Team Providers Care Patternmaker Metal Bench Name Role Phone Harika Friedman MD Primary [...] 10/12/2022 Social Influencers of Health Screening 10/12/2022 Depression Screening 11/14/2024 COVID-19 Vaccine ( - 2023-2 5 season) 2025 Influenza Vaccine (#1) 2025 RSV Immunization Adult Patie nts (1 - 1-dose 75+ series) 2061 HIB Vaccines Aged Out No longer eligi [...] age to complete this topic Care Teams Patternmaker Metal Bench Relationship Specialty Start Date End Date Harika Friedman MD PCP - General Internal Medicine 09/16/16
== END 2025-08-08 10:21 | disposition home or self-care (01) ==
LOC: HO.HOS 08:50
PROVIDERS: PCP Family Medicine; Visit Provider Physical Medicine & Rehabilitation
DX: M53.3 Sacrococcygeal disorders, not elsewhere classified (principal)
CPT/HCPCS: 99214

== ENCOUNTER 2025-08-08 08:50 | Outpatient (REF) | payer OTHER, SELFPAY ==
--- NOTE | ~2025-08-08 | XR_ITS ---
EXAMINATION: XR SACROILIAC JOINTS CLINICAL INFORMATION: M53.3 - Sacrococcygeal disorders, not elsewhere classified COMPARISON: None available. TECHNIQUE: 3 views of the sacroiliac joints FINDINGS: Bones and soft tissues are normal. No fracture. Alignment is anatomic. Sacroiliac joint spaces are well-maintained without erosions or surrounding sclerosis. XR/XR sacroiliac joint min 3V IMPRESSION: Normal sacroiliac joints. Electronically signed by: Blayne Rob MD 08/08/2025 09:34 AM EDT
--- NOTE | ~2025-08-08 | XR_ITS ---
EXAMINATION: XR LUMBOSACRAL SPINE CLINICAL INFORMATION: M54.9 - Dorsalgia, unspecified COMPARISON: None available. TECHNIQUE: Three views of the lumbosacral spine. FINDINGS: There is no scoliosis. There is a normal lordosis. There is no subluxation. There is no fracture, compression deformity, or suspicious bone lesion. There is minimal disc degeneration present at L2-3. Discs are otherwise grossly normal in appearance. Normal facet alignment without significant facet arthrosis. The sacrum appears intact. The SI joints appear normal. No soft tissue abnormalities. XR/XR lumbar spine 2-3V IMPRESSION: 1. No acute findings of the lumbar spine. 2. Minimal degenerative disc disease at L2-3. Electronically signed by: Blayne Rob MD 08/08/2025 09:35 AM EDT
== END 2025-08-08 08:51 | disposition home or self-care (01) ==
LOC: HO.HOSX 08:50
PROVIDERS: PCP Family Medicine; Visit Provider Physical Medicine & Rehabilitation
DX: M53.3 Sacrococcygeal disorders, not elsewhere classified (principal); M54.50 Low back pain, unspecified; Z79.1 Long term (current) use of non-steroidal anti-inflammatories (NSAID)
CPT/HCPCS: 72100; 72202

== ENCOUNTER → 2025-08-08 09:17 | Outpatient (BNV) | payer OTHER, SELFPAY | PROVIDERS: PCP Family Medicine; Visit Provider Radiology Diagnostic Radiology | DX: M51.360 Other intervertebral disc degeneration, lumbar region with discogenic back pain only (principal); M53.3 Sacrococcygeal disorders, not elsewhere classified | CPT/HCPCS: 72100; 72202 ==

== ENCOUNTER 2025-10-21 06:56 | Outpatient (REF) | payer OTHER, SELFPAY ==
--- OUTSIDE RECORDS SUMMARY | 2025-10-21 07:00 | XMS_ITS | Clinical Summary ---
Author Organization [facility] ity Address [address] [place] [address] Care Team Providers Care Cobol Programmer Name Role Phone Harika Friedman MD Primary [...] Cervical Cancer Screening: P ap Smear 2007 HPV Vaccines (1 - 3-dose SCD M series) 2013 HIV Screening 10/12/2022 Hepatitis C Screening 10/12/2022 Social Influencers of Health Screening 10/12/2022 Depression Screening 11/14/2024 COVID-19 Vaccine ( - 2024-2 6 season) 2025 Influenza Vaccine (#1) 2025 RSV [...] age to complete this topic Care Teams Cobol Programmer Relationship Specialty Start Date End Date Harika Friedman MD PCP - General Internal Medicine 09/16/16
[2025-10-21 10:15] LABS: MANUAL DIFF FLAG NO
[2025-10-21 10:29] LABS: Appearance Urine Turbid; Glucose Urine UA Negative (Negative); Hematocrit 36.0 % (37.0-47.0); Hemoglobin 11.2 g/dl (12.0-16.0); Imm Gran Abs Auto 0.01 X10*3/uL (0.00-0.03); Imm Gran Pct Auto 0.2 % (0.0-0.4); Lymphocytes Absolute Auto 1.7 X10*3/uL (1.2-4.9); Mean Corpuscular HGB Conc 31.1 g/dl (31.0-35.0); Mean Corpuscular Hemoglobin 24.6 pg (27.0-33.0); Mean Corpuscular Volume 79.1 fL (80.0-98.0); NRBC Abs Auto 0.000 X10*3/uL (0.0-0.012); NRBC Pct Auto 0.0 /100WBC (0.0-0.2); PH 6.0 (5.0-9.0); Platelet Count 256 X10*3/uL (160-400); Red Blood Count 4.55 X10*6/uL (4.20-5.50); Specific Gravity - Urine >= 1.030 (1.005-1.025); White Blood Count 5.5 X10*3/uL (4.8-10.8)
[2025-10-21 10:42] LABS: Microalbum/Creatinine Ratio Ur 11.7 ug/mg cr (<30)
[2025-10-21 11:26] LABS: Alanine Aminotransferase 33 U/L (0-31); Albumin Level 4.0 g/dL (3.5-5.0); Alkaline Phosphatase 60 U/L (39-117); Anion Gap 9 (12-20); Aspartate Amino Transferase 36 U/L (5-31); Blood Urea Nitrogen 18 mg/dL (9-16); Calcium 9.0 mg/dL (8.4-10.2); Carbon Dioxide 27 mmol/L (22-29); Chloride 107 mmol/L (96-108); Cholesterol 157 mg/dL (<200); Estimated Glomerular Filt Rate > 60; HDL Cholesterol 47 mg/dL (>40); Potassium 3.6 mmol/L (3.3-5.1); Sodium 139 mmol/L (135-145); Total Protein 7.3 g/dL (6.5-8.0); Triglycerides 66 mg/dL (<150)
== END 2025-10-21 06:57 | disposition home or self-care (01) ==
LOC: HO.HMGCLDS 06:56
PROVIDERS: PCP Family Medicine; Visit Provider Family Medicine
DX: Z00.00 Encounter for general adult medical examination without abnormal findings (principal); I10 Essential (primary) hypertension; R73.01 Impaired fasting glucose
CPT/HCPCS: 36415; 80053; 80061; 81003; 82043; 82570; 83036; 84443; 85025

== ENCOUNTER 2025-10-29 08:50 | Outpatient (AMB) | payer OTHER, SELFPAY ==
--- NOTE | 2025-10-29 09:04 | MHC.PC.OV ---
Vital Signs 10/29/25 09:21 Height 5 ft 5 in Weight 231 lb 4 oz BMI 38.5 BP 112/78 Blood Pressure Location Rt brachial Position Sitting Respiration 14 Pulse 71 Pulse Source Pulse Oximeter Temp 97.8 F Temp Source Temporal Artery Scan Pulse Oximetry (%) 97 Oxygen Delivery Method Room Air Intake Visit Reasons: CPE Intake Note: Katya presents in the office today for her annual physical. Final Expense Agent Required: Yes Final Expense Agent Name: Ileana Tenorio Information Interpreted: non-clinical & clinical Solar Electric Installer: Not Required per policy Is last menstrual period known: Yes Last menstrual period: 10/29/25 Post menopausal: No Patient : No Allergies No Known Allergies Allergy (Verified 10/29/25 09:18) Medication List - Last Reconciled 10/29/25 by Brooks Wolf MD losartan-hydrochlorothiazide 50-12.5 mg 1 tab PO DAILY 90 days metformin 500 mg PO DAILY 90 days omeprazole 20 mg PO DAILY 30 days Tobacco use date assessed: 10/29/25 Dental Screening Dental Screen Date: 10/29/25 Did you have a dental visit in the last 12 months?: Yes Did you have a dental problem in the last 6 months where you did not have access to dental care?: No Was dental information given to patient?: Patient has dentist HPI CPE HPI Details 40 y/o female presents for a CPE with f/u labs and health maint. Labs drawn 10/21/25. Reviewed labs with pt. Mild anemia. Elevated liver enzymes - AST 36, ALT 33. Triglycerides 66. TC 157. LDL 97. HDL 47. TSH 1.78 uIU/mL. Reports GERD symptoms despite omeprazole use. PFSH Medical History (Updated 10/29/25 @ 09:54 by Cas Hughes) Acid reflux Hemoglobin low delivery delivered Surgical History (Updated 10/02/25 @ 10:33 by Margaret Pemberton CMA) Hx of section Family History (Updated 10/29/25 @ 09:20 by Delfina Walker CMA) Mother High blood pressure High cholesterol FH: mental illness Depression Father High blood pressure High cholesterol Cardiovascular disease Cancer Maternal Grandmother High blood pressure Paternal Grandfather High blood pressure Social History (Updated 10/29/25 @ 09:20 by Delfina Walker CMA) Household Members: Family Housing: House Are you a primary animal daycare provider to a significant other at home: No Do you presently have visiting nurse or other home services: No 75 years or older and lives alone: No Alcohol intake: current Alcohol intake frequency: holidays/special occasions only Alcohol type: wine Patient Tobacco Use Status: Never used Tobacco e-Cigarette/Vaping Use: Never Used Second Hand Smoke Exposure: No Special frances needs: Yes service: No Current occupational status: employed Current occupation: Works at [employer] Cognitive needs: No Hearing needs: No Vision needs: No Female Reproductive History Menstrual Date of last menstrual period: 10/29/25 Questionnaire PHQ-9 Over the last 2 weeks, how often have you been bothered by any of the following problems? 1. Little interest or pleasure in doing things: not at all 2. Feeling down, depressed, or hopeless: not at all 3. Trouble falling or staying asleep, or sleeping too much: not at all 4. Feeling tired or having little energy: not at all 5. Poor appetite or overeating: not at all 6. Feeling bad about yourself - or that you are a failure or have let yourself or your family down: not at all 7. Trouble concentrating on things, such as reading the newspaper or watching television: not at all 8. Moving or speaking so slowly that other people could have noticed. Or the opposite - being so fidgety or restless that you have been moving around a lot more than usual: not at all 9. Thoughts that you would be better off or of hurting yourself in some way: not at all Total score: 0 Depression Screening Interpretation: Negative Depression Screening Done: Yes 51224 - PHQ-9 Billing: Yes Source: Developed by Drs. Nikhil Kumar, Nichole Azul, Talha Lindquist and colleagues, with an educational trice from [employer]. Thrive Questionnaire Date Thrive assessed: 10/29/25 I am a: Patient What is your living situation today?: I have a steady place to live Within the past 12 months, did the food you bought not last and you didn't have the money to get more?: I choose not to answer this question Within the past 12 months, did you worry whether your food would run out before you got money to buy more?: I choose not to answer this question Do you have trouble paying for medicines?: I choose not to answer this question Do you have trouble getting transportation to medical appointments?: Yes Do you have trouble paying your heating and electricity bill?: I choose not to answer this question Do you have trouble taking care of your child, family member or friend?: No Do you have trouble with day-to-day activities such as bathing, preparing meals, shopping, managing finances, etc.?: No Are you currently unemployed and looking for a job?: No Are you interested in more education?: No Please select the resources that you would like help with: None Currently or been in a relationship where the following occur: No concerns reported THRIVE Score: 1 AUDIT C Alcohol Use Questionnaire (AUDIT-C) 1. How often do you have a drink containing alcohol?: Monthly or less 2. How many drinks containing alcohol do you have on a typical day when you are drinking?: 1 or 2 3. How often do you have six or more drinks on one occasion?: Never Total Score: 1 LAYLA-7 AMB Questionnaire LAYLA-7 Date LAYLA - 7 assessed: 10/29/25 Feeling nervous, anxious, or on edge: 0 = Not at all Not being able to stop or control worryin = Not at all Worrying too much about different things: 0 = Not at all Trouble relaxin = Not at all Being so restless that it is hard to sit still: 0 = Not at all Becoming easily annoyed or irritable: 0 = Not at all Feeling afraid as if something awful might happen: 0 = Not at all Total LAYLA-7 score (0-4 normal; 5-9 mild; 10-14 moderate; 15-21 severe): 0 Source: Developed by Drs. Nikhil Kumar, Nichole Azul, Talha Lindquist and colleagues, with an educational trice from [employer]. LAYLA-7 Assessment Billing LAYLA-7 Assessment Tool: LAYLA-7 Assessment 07485 Review of Systems Const Denies chills, Denies fatigue, Denies fever(s), Denies headache(s) and Denies weakness Eyes Denies change in vision ENT Denies dizziness, Denies headache(s), Denies hearing loss, Denies nasal congestion, Denies sinus pain, Denies sinus pressure and Denies sore throat Card Denies chest pain, Denies lightheadedness, Denies dyspnea and Denies other (palpitations) Resp Denies cough, Denies dyspnea and Denies wheezing GI Denies abdominal pain, Denies melena, Denies hematochezia, Denies change in bowel habits, Denies dyspepsia and Denies nausea Denies hematuria and Denies dysuria Musc Denies abnormal gait, Denies myalgias, Denies arthralgias, Denies numbness and Denies tingling Skin/Breast Denies rash, Denies unusual bruising and Denies wounds Neuro Denies abnormal gait, Denies dizziness, Denies headache(s), Denies memory loss, Denies numbness, Denies Sensory deficit (Neuro), Denies tingling and Denies weakness Psych Denies anxiety, Denies depression and Denies memory loss Endo Denies cold intolerance, Denies fatigue, Denies heat intolerance, Denies polydipsia and Denies polyuria Audi/Lymph Denies easy bleeding and Denies easy bruising Aller/Immun Denies wheezing Physical exam (Primary Care) Vital Signs: Last Vital Signs Temp 97.8 F 10/29/25 09:21 Pulse 71 10/29/25 09:21 Resp 14 10/29/25 09:21 BP 112/78 10/29/25 09:21 Pulse Ox 97 10/29/25 09:21 Oxygen Delivery Method Room Air 10/29/25 09:21 BMI result Body Mass Index 38.5 Tobacco/Smoking Status: Tobacco use Status Tobacco use date assessed 10/29/25 10/29/25 09:24 Patient Tobacco Use Status Never used Tobacco 10/29/25 09:20 e-Cigarette/Vaping Use Never Used 10/29/25 09:20 PHQ-9: PHQ-9 Score PHQ-9: Total score 0 10/29/25 09:24 Depression Screening Interpretation: Negative Thrive Assessment: Date of Thrive Assessment Date Thrive assessed 10/29/25 10/29/25 09:24 Currently or been in a relationship where the following occur: No concerns reported Const General: no acute distress, well developed, alert and awake Nutritional Appearance: well nourished Orientation/consciousness: patient oriented x3 HENMT Head: Yes normocephalic and Yes atraumatic Ears: hearing grossly normal bilaterally and TM's normal bilaterally General nose exam: Normal external nose present and Normal nares present Mouth: Normal oral and palatal mucosa present and moist mucous membranes Teeth and gingiva: dentition normal Throat: Yes posterior oropharynx normal Eyes General: appearance normal, both eyes and all related structures Pupils: Equal, round and reactive pupils present and Pupil accommodation reflex normal EOM: EOMs intact bilaterally Neck Neck: Yes normal visual inspection, Yes no lymphadenopathy and Yes trachea midline Thyroid: Thyroid normal Carotids: no bruits Lymphatic: no lymphadenopathy noted Chest Chest palpation & inspection: normal inspection of the chest Resp Effort & Inspection: normal respiratory effort Auscultation: clear to auscultation bilaterally Cardio Rate: regular rate Rhythm: regular rhythm Heart sounds: S1 normal heart sound present, S2 normal heart sound present, no gallops, no murmurs and no rubs Bruits: no abdominal aortic bruits and no carotid bruits GI Palpation (GI): No Abdominal aortic bruit present, Soft to palpation, nontender, No hepatosplenomegaly present and No Rebound tenderness present Auscultation: normal bowel sounds General: Yes no CVA tenderness Back/Spine/Pelvis Back: no CVA tenderness Cervical Spine: cervical ROM normal and No Cervical spine tenderness Thoracic/Lumbar Spine: thoraco-lumbar ROM normal, No pain with thoraco-lumbar ROM, No thoracic spinal tenderness and No lumbar spinal tenderness Skin Lesions: no lesions Rashes: no rashes Trauma: no lacerations or abrasions Wounds: no wounds Nails: normal Neuro General: patient oriented x3 Cranial nerves: Yes Equal, round and reactive pupils present Cognition (Neuro): normal cognition Gait exam (Neuro): Normal gait present Motor exam (neuro): 5/5 motor strength present throughout Sensory Exam: No Sensory deficit (Neuro) Deep tendon reflexes (DTR's): Right patellar reflex intensity grade: 2+ and Left patellar reflex intensity grade: 2+ Extrem General: Yes normal to inspection and No edema Psych Appearance: grossly normal Affect: normal affect Attitude: cooperative Thought process: Normal thought process present Coding Level of Care Code Est Pt Prev Care 18-39y(91951) Diagnoses Adult general medical examination Z00.00 Elevated liver enzymes R74.8 Mild anemia D64.9 Hypertension I10 Diabetes E11.9 Screening for cervical cancer Z12.4 Acid reflux K21.9 Additional Codes LAYLA-7 Assessment Billing - LAYLA-7 Assessment Tool: LAYLA-7 Assessment [id number] ([id number]) PHQ-9 - 42284 - PHQ-9 Billing: Yes ([id number]) Assessment & Plan Assessment & Plan (1) Adult general medical examination: Code(s): Z00.00 - Encounter for general adult medical examination without abnormal findings Category: Medical Plan: 40-year-old female presents for complete physical exam Encouraged healthy diet with active lifestyle and plenty of exercise (2) Elevated liver enzymes: Code(s): R74.8 - Abnormal levels of other serum enzymes Category: Medical Plan: Mildly elevated liver enzymes Increase hydration and work at weight loss Will recheck in a few months (3) Mild anemia: Code(s): D64.9 - Anemia, unspecified Category: Medical Plan: Mild anemia, mildly microcytic. Recheck with next blood draw and will check iron levels as well (4) Hypertension: Code(s): I10 - Essential (primary) hypertension Category: Medical Plan: Blood pressure is controlled. Goal is less than 140/90 Continue current medication (5) Diabetes: Code(s): E11.9 - Type 2 diabetes mellitus without complications Category: Medical Plan: A1c 5.4%. Good control. Goal is less than 7.0% Continue current medication (6) Screening for cervical cancer: Code(s): Z12.4 - Encounter for screening for malignant neoplasm of cervix Category: Medical Plan: Pap smears at [facility] Patient says she is up-to-date Follow-up as recommended (7) Acid reflux: Code(s): K21.9 - Gastro-esophageal reflux disease without esophagitis Category: Medical Plan: Frequent acid reflux symptoms despite using omeprazole Referred to Gastroenterology Orders: Orders IRON PROFILE Today D64.9 - Anemia, unspecified Comprehensive [place]. Panel Fast Today R74.8 - Abnormal levels of other serum enzymes, Z00.00 - Encounter for general adult medical examination without abnormal findings Hemoglobin A1c Today E11.9 - Type 2 diabetes mellitus without complications, R73.01 - Impaired fasting glucose Complete Blood Count Auto Diff Today D64.9 - Anemia, unspecified, Z00.00 - Encounter for general adult medical examination without abnormal findings Referrals Gastroenterology Referral K21.9 - Gastro-esophageal reflux disease without esophagitis Medications: New omeprazole 20 mg PO DAILY 30 caps 3RF 30 days
[2025-10-29 09:21] VITALS: BP 112/78; PULSE 71; RESP 14; TEMP 36.6; O2SAT 97; BMI 38.5
--- OUTSIDE RECORDS SUMMARY | 2025-10-29 09:41 | XMS_ITS | Clinical Summary ---
Author Organization [facility] ity Address [address] [place] [address] Care Team Providers Care Equipment Maintenance Engineer Name Role Phone Harika Friedman MD Primary [...] age to complete this topic Care Teams Equipment Maintenance Engineer Relationship Specialty Start Date End Date Harika Friedman MD PCP - General Internal Medicine 09/16/16
== END 2025-10-29 09:56 | disposition home or self-care (01) ==
LOC: HO.HMCFM 08:51
PROVIDERS: PCP Family Medicine; Visit Provider Family Medicine
DX: Z00.00 Encounter for general adult medical examination without abnormal findings (principal); E11.9 Type 2 diabetes mellitus without complications; R74.8 Abnormal levels of other serum enzymes; D64.9 Anemia, unspecified; I10 Essential (primary) hypertension; Z12.4 Encounter for screening for malignant neoplasm of cervix; K21.9 Gastro-esophageal reflux disease without esophagitis

== ENCOUNTER → 2025-10-29 08:50 | Outpatient (BNVA) | payer OTHER, SELFPAY | PROVIDERS: PCP Family Medicine; Visit Provider Family Medicine | DX: Z00.00 Encounter for general adult medical examination without abnormal findings (principal); Z12.4 Encounter for screening for malignant neoplasm of cervix; R74.8 Abnormal levels of other serum enzymes; D64.9 Anemia, unspecified; I10 Essential (primary) hypertension; E11.9 Type 2 diabetes mellitus without complications; K21.9 Gastro-esophageal reflux disease without esophagitis | CPT/HCPCS: 96127 ==

== ENCOUNTER 2025-10-31 09:55 | Outpatient (AMB) | payer OTHER, SELFPAY ==
--- NOTE | 2025-10-31 09:58 | A.OFFVIS_ITS ---
Intake Visit Reasons: OV-Lower back pain-F/U Intake Note: Katya is a 40 year old female who presents today as a follow up for her Sacroiliac joint dysfunction of left side. At today's visit she states that she was unable to attend physical therapy due to having Covid. Patient states that the left lower back pain is having a stabbing sharp pain, numbness/tingling. Pain Scale- 6 Snow Plow Tractor Operator Required: Yes Snow Plow Tractor Operator Services: Snow Plow Tractor Operator Present Snow Plow Tractor Operator Name: KAVON- CCMA/LM Allergies No Known Allergies Allergy (Verified 10/29/25 09:18) HPI Comments Details: At least 1 year of back pain. Had gone to PT with initial improvement but pain has returned after. Actually she was referred to PT for shoulder pain (separate issue from the back and she did not have back pain yet at that time). After she finished PT for shoulder, that's when she started feeling the back pain. No PT specifically for the back pain. Low back pain left side, radiates to left lateral knee area, not lower. No numbness. Thought to be coming from left SI joint. She has not gone to PT for this back pain, most recent reason was having COVID. She says she is able to exercise at home though. X-rays done on last visit: Unremarkable SI joint x-ray. Disc spaces preserved. Still left sided back pain, pain level 6/10 usually. Shoots down to left leg. [facility] Medical History (Updated 10/31/25 @ 10:21 by Dayana Kong MD) Acid reflux Hemoglobin low delivery delivered Surgical History (Updated 10/02/25 @ 10:33 by Margaret Pemberton [facility]) Hx of section Family History (Updated 10/29/25 @ 09:20 by Delfina Walker CMA) Mother High blood pressure High cholesterol FH: mental illness Depression Father High blood pressure High cholesterol Cardiovascular disease Cancer Maternal Grandmother High blood pressure Paternal Grandfather High blood pressure Social History (Updated 10/29/25 @ 09:20 by Delfina Walker CMA) Household Members: Family Housing: House Are you a primary manager critical care to a significant other at home: No Do you presently have visiting nurse or other home services: No 75 years or older and lives alone: No Alcohol intake: current Alcohol intake frequency: holidays/special occasions only Alcohol type: wine Patient Tobacco Use Status: Never used Tobacco e-Cigarette/Vaping Use: Never Used Second Hand Smoke Exposure: No Special frances needs: Yes service: No Current occupational status: employed Current occupation: Works at [employer] Cognitive needs: No Hearing needs: No Vision needs: No Physical Exam Exam Exam: Constitutional: Patient appears to be in no acute distress, well nourished and well developed. Patient was appropriately conversant and oriented. Good historian. MSK: Focal tenderness over left piriformis. SI joint nontender. Neurological: Neurologic examination of the upper and lower extremities was nonfocal with intact sensation, muscle stretch reflexes and without focal motor deficits . Babinski was down going bilaterally. Clonus was negative. Gait is non-antalgic without loss of balance. Results Reviewed Results Reviewed: Ordering Physician: Dayana Milian Date of Service: 08/08/25 Procedure(s): XR sacroiliac joint min 3V Accession Number(s): [id number] cc: Brooks Wolf MD; Dayana Milian~ Reason for Exam: M53.3 - Sacrococcygeal disorders, not elsewhere classified EXAMINATION: XR SACROILIAC JOINTS CLINICAL INFORMATION: M53.3 - Sacrococcygeal disorders, not elsewhere classified COMPARISON: None available. TECHNIQUE: 3 views of the sacroiliac joints FINDINGS: Bones and soft tissues are normal. No fracture. Alignment is anatomic. Sacroiliac joint spaces are well-maintained without erosions or surrounding sclerosis. XR/XR sacroiliac joint min 3V IMPRESSION: Normal sacroiliac joints. Electronically signed by: Blayne Rob MD 08/08/2025 09:34 AM EDT Ordering Physician: Dayana Milian Date of Service: 08/08/25 Procedure(s): XR lumbar spine 2-3V Accession Number(s): [id number] cc: Brooks Wolf MD; Dayana Milian~ Reason for Exam: M54.9 - Dorsalgia, unspecified EXAMINATION: XR LUMBOSACRAL SPINE CLINICAL INFORMATION: M54.9 - Dorsalgia, unspecified COMPARISON: None available. TECHNIQUE: Three views of the lumbosacral spine. FINDINGS: There is no scoliosis. There is a normal lordosis. There is no subluxation. There is no fracture, compression deformity, or suspicious bone lesion. There is minimal disc degeneration present at L2-3. Discs are otherwise grossly normal in appearance. Normal facet alignment without significant facet arthrosis. The sacrum appears intact. The SI joints appear normal. No soft tissue abnormalities. XR/XR lumbar spine 2-3V IMPRESSION: 1. No acute findings of the lumbar spine. 2. Minimal degenerative disc disease at L2-3. Electronically signed by: Blayne Rob MD 08/08/2025 09:35 AM EDT RP Assessment & Plan Assessment & Plan (1) Sacroiliac joint dysfunction of left side: Code(s): M53.3 - Sacrococcygeal disorders, not elsewhere classified Category: Medical (2) Piriformis syndrome of left side: Code(s): G57.02 - Lesion of sciatic nerve, left lower limb Category: Medical Plan Presenting today with more pain on left piriformis and gluteus muscles, rather than SI joint. No signs of lumbar radiculopathy on exam. Unfortunately she is unable to go to physical therapy but she is very willing to do home exercises. I gave her a list of safe exercises to do at home to target the piriformis and SI joint. We can also trial trigger point injections, patient is eager to proceed, we will schedule. Assessment and plan discussed with patient, and patient was agreeable. All questions were answered thoroughly. Total of 30 minutes spent today including chart review, results review, history taking, physical examination, discussion of assessment and plan, and coordination of care. Dayana Kong MD, CHAR Board Certified, [place] [employer] and Rehabilitation (ABPMR) Board Certified, [place] [employer] Electrodiagn[employer] (ABEM) Coding Level of Care Code Est Pt Level 3 (81933) Diagnoses Sacroiliac joint dysfunction of left side M53.3 Piriformis syndrome of left side G57.02
--- OUTSIDE RECORDS SUMMARY | 2025-10-31 12:10 | XMS_ITS | Clinical Summary ---
Author Organization [facility] ity Address [address] [place] [address] Care Team Providers Care Market Research Specialist Name Role Phone Harika Friedman MD Primary Care Provider [phone] Social History Tobacco Use Types Packs/Day Years [...] age to complete this topic Care Teams Market Research Specialist Relationship Specialty Start Date End Date Harika Friedman MD PCP - General Internal Medicine 09/16/16
== END 2025-10-31 11:35 | disposition home or self-care (01) ==
LOC: HO.HOS 09:56
PROVIDERS: PCP Family Medicine; Visit Provider Physical Medicine & Rehabilitation
DX: M53.3 Sacrococcygeal disorders, not elsewhere classified (principal); G57.02 Lesion of sciatic nerve, left lower limb
CPT/HCPCS: 99213